=== PATIENT | female | born 1980 | race Caucasian/White ===

== ENCOUNTER → 2016-11-30 | Outpatient (CLI) | payer MEDICARE, MEDICAID ==
[2016-11-30 18:22] LABS: ALANINE AMINOTRANSFERASE 37 U/L (9-52); ALBUMIN 4.3 g/dL (3.5-5.0); ALKALINE PHOSPHATASE 119 U/L (38-126); ANION GAP 14 (5-19); ASPARTATE AMINO TRANSFERASE 30 U/L (14-36); BILIRUBIN,DIRECT 0.3 mg/dL (0.0-0.4); BILIRUBIN,TOTAL 0.4 mg/dL (0.2-1.3); BLOOD UREA NITROGEN 8 mg/dL (7-20); CARBON DIOXIDE 23 mmol/L (22-30); CHLORIDE 108 mmol/L (98-107); CREATININE RESULT 0.76 mg/dL (0.52-1.25); GLUCOSE 87 mg/dL (75-110); POTASSIUM 3.8 mmol/L (3.6-5.0); SODIUM 144.8 mmol/L (137-145); TOTAL PROTEIN 7.4 g/dL (6.3-8.2)
== END ==
LOC: OD 17:14
PROVIDERS: ATTEND Physician Assistant Medical
DX: R06.02 Shortness of breath (principal)
CPT/HCPCS: 36415; 80053

== ENCOUNTER 2016-12-10 07:23 | Day surgery (SDC) | payer MEDICARE, MEDICAID ==
[~2016-12-10 07:23] MED LIST: PROPOFOL INJ 200 MG/20 ML VIAL IV ONE
[2016-12-10] MEDS ORDERED: LIDOCAINE 0.5% INJ-PF (5 MG/ML) 50 ML SDV ONE (07:43)
[2016-12-10 09:00] VITALS: BP 123/83
--- NOTE | 2016-12-10 14:09 | Operative Report ---
Operative Report DATE OF SURGERY: 12/10/16 Operative Report: The risks, benefits and alternatives of the procedure including risks of bleeding, perforation requiring surgery are explained to the patient detail and informed consent is obtained. Patient is placed in a left, lateral decubital position. Timeout is called. Propofol medications administered. A rectal examination was done which did not reveal any masses, tears or fissures. An Olympus video scope was inserted into the patient's rectum. The scope was then gradually advanced all the way to the cecum. The cecum was identified by the usual anatomical landmarks including the ileocecal valve as well as the appendiceal office. Photodocumentation is obtained. Prep is good. The scope was then sequentially pulled back creative rest segments of the colon including the ascending colon, hepatic flexure, transverse colon, splenic flexure, descending colon, and finally into the rectosigmoid portions of the colon. Retroflexion maneuvers performed. PREOPERATIVE DIAGNOSIS: Rectal bleeding POSTOPERATIVE DIAGNOSIS: There is random areas of inflammation on the left side of the colon status post biopsy. Internal hemorrhoids OPERATION: Colonoscopy with biopsy SURGEON: GRISEL ARENAS ANESTHESIA: LMAC TISSUE REMOVED OR ALTERED: Colon mucosal specimens obtained COMPLICATIONS: None. ESTIMATED BLOOD LOSS: none. INTRAOPERATIVE FINDINGS: As described above. No masses, AVMs, diverticulosis noted. PROCEDURE: Patient tolerated the procedure well. No immediate postprocedure complications are noted. Patient is discharged in good condition. Discharge date 12/10/2016. Discharge diet: Regular. Discharge activity: Regular. 2-3 week follow-up to discuss findings. Patient is instructed call the office or proceed to the emergency room should there be any further problems or questions. We'll await on biopsies.
== END 2016-12-10 09:00 | disposition home or self-care (01) ==
LOC: END 07:23
PROVIDERS: ATTEND Internal Medicine Gastroenterology
PROC: 0DBG8ZX Excision of Left Large Intestine, Via Natural or Artificial Opening Endoscopic, Diagnostic (ICD-10-PCS; principal; 2016-12-10 08:00)
DX: K52.9 Noninfective gastroenteritis and colitis, unspecified (principal); K64.8 Other hemorrhoids; K62.5 Hemorrhage of anus and rectum; R73.9 Hyperglycemia, unspecified; R53.83 Other fatigue; M79.7 Fibromyalgia; I47.1 Supraventricular tachycardia; Z79.51 Long term (current) use of inhaled steroids; Z79.899 Other long term (current) drug therapy
CPT/HCPCS: 45380; 88305 ×2; J3490; J2704; 810

== ENCOUNTER 2016-12-22 16:33 | Emergency (ER) | payer MEDICARE, MEDICAID ==
[2016-12-22 16:38] VITALS: BP 125/78
--- NOTE | 2016-12-22 18:03 | ER Document Report ---
ED Medical Screen (RME) - General Chief Complaint: Abdominal Pain Stated Complaint: LOWER ABDOMINAL PAIN Mode of Arrival: Ambulatory Information source: Patient Notes: 36-year-old female presents with complaints of abdominal pain post colonoscopy. Patient notes abdomen is distended I have greeted and performed a rapid initial assessment of this patient. A comprehensive ED assessment and evaluation of the patient, analysis of test results and completion of the medical decision making process will be conducted by additional ED providers. PHYSICAL EXAMINATION: GENERAL: Well-appearing, well-nourished and in no acute distress. HEAD: Atraumatic, normocephalic. EYES: Pupils equal round and reactive to light, extraocular movements intact, conjunctiva are normal. ENT: Nares patent, oropharynx clear without exudates. Moist mucous membranes. NECK: Normal range of motion, supple without lymphadenopathy LUNGS: Breath sounds clear to auscultation bilaterally and equal. No wheezes rales or rhonchi. HEART: Regular rate and rhythm without murmurs ABDOMEN: Soft generalized abdominal pain Female : deferred Musculoskeletal: Normal range of motion, no pitting or edema. No cyanosis. NEUROLOGICAL: Cranial nerves grossly intact. Normal speech, normal gait. Normal sensory, motor exams PSYCH: Normal mood, normal affect. SKIN: Warm, Dry, normal turgor, no rashes or lesions noted. TRAVEL OUTSIDE OF THE [place] IN LAST 30 DAYS: No - Related Data Allergies/Adverse Reactions: aripiprazole [From Abilify] Allergy (Severe, Verified 12/22/16 17:52) Confusion Iodinated Contrast Media - Oral and [IV Dye, Iodine Containing] Allergy (Severe , Verified 12/22/16 17:52) Difficulty breathing tramadol [Tramadol] Allergy (Severe, Verified 12/22/16 17:52) Hives amitriptyline Allergy (Intermediate, Verified 12/22/16 17:52) swelling Past Medical History - Past Medical History Cardiac Medical History: Reports: Hx Hypertension - history of Denies: Hx Coronary Artery Disease, Hx Heart Attack Pulmonary Medical History: Reports: Hx Asthma, Hx Sleep Apnea Denies: Hx Bronchitis, Hx COPD, Hx Pneumonia Neurological Medical History: Denies: Hx Cerebrovascular Accident, Hx Seizures Renal/ Medical History: Denies: Hx Peritoneal Dialysis Musculoskeltal Medical History: Denies Hx Arthritis, Reports Hx Fibromyalgia, Reports Hx Muscular Dystrophy Psychiatric Medical History: Reports: Hx Anxiety, Hx Depression Past Surgical History: Reports: Hx Cholecystectomy, Hx Hysterectomy, Hx Tonsillectomy - Immunizations Immunizations up to date: Yes Hx Diphtheria, Pertussis, Tetanus Vaccination: Yes Physical Exam - Vital signs Vitals: Temp Pulse Resp BP Pulse Ox 98.5 F 95 19 125/78 97 12/22/16 16:37 12/22/16 16:37 12/22/16 16:37 12/22/16 16:37 12/22/16 16:37 Course - Vital Signs Vital signs: Temp Pulse Resp BP Pulse Ox 98.5 F 95 19 125/78 97 12/22/16 16:37 12/22/16 16:37 12/22/16 16:37 12/22/16 16:37 12/22/16 16:37
[2016-12-22 18:33] LABS: ABSOLUTE LYMPHOCYTES (AUTO) 3.2 10^3/uL (0.5-4.7); ABSOLUTE MONOCYTES (AUTO) 0.6 10^3/uL (0.1-1.4); ABSOLUTE NEUT (AUTO) 8.9 10^3/uL (1.7-8.2); BASOPHILS % (AUTO) 0.2 % (0-2); EOSINOPHILS % (AUTO) 0.3 % (0-6); HEMATOCRIT 40.5 % (36.0-47.0); HEMOGLOBIN 13.8 g/dL (12.0-15.5); HGB HCT DIFFERENCE 0.9; LYMPHOCYTES % (AUTO) 25.2 % (13-45); MEAN CORPUSCULAR HEMOGLOBIN 30.9 pg (27.0-33.4); MEAN CORPUSCULAR VOLUME 91 fl (80-97); RED BLOOD COUNT 4.46 10^6/uL (3.72-5.28); RED CELL DISTRIBUTION WIDTH 12.5 % (11.5-14.0); SEGMENTED NEUTROPHILS % (AUTO) 69.3 % (42-78); WHITE BLOOD COUNT 12.8 10^3/uL (4.0-10.5)
[2016-12-22] MEDS ORDERED: HYDROCODONE/ACETAMINOPHEN 5-325 MG TABLET PO ONE (18:58)
[2016-12-22 19:24] LABS: ALANINE AMINOTRANSFERASE 28 U/L (9-52); ALBUMIN 3.6 g/dL (3.5-5.0); ALKALINE PHOSPHATASE 79 U/L (38-126); ANION GAP 10 (5-19); ASPARTATE AMINO TRANSFERASE 17 U/L (14-36); BILIRUBIN,DIRECT 0.1 mg/dL (0.0-0.4); BILIRUBIN,TOTAL 0.2 mg/dL (0.2-1.3); BLOOD UREA NITROGEN 11 mg/dL (7-20); CALCIUM 8.6 mg/dL (8.4-10.2); CARBON DIOXIDE 22 mmol/L (22-30); CHLORIDE 110 mmol/L (98-107); CREATININE RESULT 0.76 mg/dL (0.52-1.25); GLUCOSE 81 mg/dL (75-110); LIPASE 71.9 U/L (23-300); POTASSIUM 3.4 mmol/L (3.6-5.0); TOTAL PROTEIN 6.1 g/dL (6.3-8.2)
--- NOTE | 2016-12-22 19:42 | ER Document Report ---
ED General - General Chief Complaint: Abdominal Pain Stated Complaint: LOWER ABDOMINAL PAIN Mode of Arrival: Ambulatory Information source: Patient Notes: 36 yr old female presents with complaints of abdominal pain for 12 day duration since having her colonoscopy. pt denies any fevers or chills, notes she has seen her pcp and her gastro and no abnormalities noted. Patient states her abdomen is distended TRAVEL OUTSIDE OF THE [place] IN LAST 30 DAYS: No - HPI Onset: Other Onset/Duration: Persistent Quality of pain: Achy Severity: Mild Pain Level: 1 Associated symptoms: Nausea, Other Exacerbated by: Denies Relieved by: Denies Similar symptoms previously: Yes Recently seen / treated by doctor: Yes - Related Data Allergies/Adverse Reactions: aripiprazole [From Abilify] Allergy (Severe, Verified 12/22/16 17:52) Confusion Iodinated Contrast Media - Oral and [IV Dye, Iodine Containing] Allergy (Severe , Verified 12/22/16 17:52) Difficulty breathing tramadol [Tramadol] Allergy (Severe, Verified 12/22/16 17:52) Hives amitriptyline Allergy (Intermediate, Verified 12/22/16 17:52) swelling Past Medical History - General Information source: Patient - Social History Smoking Status: Never Smoker Cigarette use (# per day): No Chew tobacco use (# tins/day): No Smoking Education Provided: No Family History: Reviewed & Not Pertinent Patient has suicidal ideation: No Patient has homicidal ideation: No - Past Medical History Cardiac Medical History: Reports: Hx Hypertension - history of Denies: Hx Coronary Artery Disease, Hx Heart Attack Pulmonary Medical History: Reports: Hx Asthma, Hx Sleep Apnea Denies: Hx Bronchitis, Hx COPD, Hx Pneumonia Neurological Medical History: Denies: Hx Cerebrovascular Accident, Hx Seizures Renal/ Medical History: Denies: Hx Peritoneal Dialysis Musculoskeltal Medical History: Denies Hx Arthritis, Reports Hx Fibromyalgia, Reports Hx Muscular Dystrophy Psychiatric Medical History: Reports: Hx Anxiety, Hx Depression Past Surgical History: Reports: Hx Cholecystectomy, Hx Hysterectomy, Hx Tonsillectomy - Immunizations Immunizations up to date: Yes Hx Diphtheria, Pertussis, Tetanus Vaccination: Yes Review of Systems - Review of Systems Notes: REVIEW OF SYSTEMS: CONSTITUTIONAL : Denies fever, chills, or sweats. Denies recent illness. EENT: Denies eye, ear, throat, or mouth pain or symptoms. Denies nasal or sinus congestion or discharge. Denies throat, tongue, or mouth swelling or difficulty swallowing. CARDIOVASCULAR: Denies chest pain. Denies palpitations or racing or irregular heart beat. Denies ankle edema. RESPIRATORY: Denies cough, cold, or chest congestion. Denies shortness of breath, difficulty breathing, or wheezing. GASTROINTESTINAL: Admits to nausea vomiting abdominal pain GENITOURINARY: Denies difficulty urinating, painful urination, burning, frequency, blood in urine, or discharge. FEMALE GENITOURINARY: Denies vaginal bleeding, heavy or abnormal periods, irregular periods. Denies vaginal discharge or odor. MUSCULOSKELETAL: Denies back or neck pain or stiffness. Denies joint pain or swelling. SKIN: Denies rash, lesions or sores. HEMATOLOGIC : Denies easy bruising or bleeding. LYMPHATIC: Denies swollen, enlarged glands. NEUROLOGICAL: Denies confusion or altered mental status. Denies passing out or loss of consciousness. Denies dizziness or lightheadedness. Denies headache. Denies weakness or paralysis or loss of use of either side. Denies problems with gait or speech. Denies sensory loss, numbness, or tingling. Denies seizures. PSYCHIATRIC: Denies anxiety or stress. Denies depression, suicidal ideation, or homicidal ideation. ALL OTHER SYSTEMS REVIEWED AND NEGATIVE. Dictation was performed using [employer] voice recognition software PHYSICAL EXAMINATION: GENERAL: Well-appearing, well-nourished and in no acute distress. HEAD: Atraumatic, normocephalic. EYES: Pupils equal round and reactive to light, extraocular movements intact, conjunctiva are normal. ENT: Nares patent, oropharynx clear without exudates. Moist mucous membranes. NECK: Normal range of motion, supple without lymphadenopathy LUNGS: Breath sounds clear to auscultation bilaterally and equal. No wheezes rales or rhonchi. HEART: Regular rate and rhythm without murmurs ABDOMEN: Soft, generalized tenderness no rebound or guarding Female : deferred Musculoskeletal: Normal range of motion, no pitting or edema. No cyanosis. NEUROLOGICAL: Cranial nerves grossly intact. Normal speech, normal gait. Normal sensory, motor exams PSYCH: Normal mood, normal affect. SKIN: Warm, Dry, normal turgor, no rashes or lesions noted. Physical Exam - Vital signs Vitals: Temp Pulse Resp BP Pulse Ox 98.5 F 95 19 125/78 97 12/22/16 16:37 12/22/16 16:37 12/22/16 16:37 12/22/16 16:37 12/22/16 16:37 Course - Re-evaluation Re-evalutation: 12/22/16 21:08 Lab work notes mild white count elevation however a CT was performed in no acute abnormality was noted. Patient was explained that no life-threatening issues are seen therefore I believe patient is stable for discharge to follow- up with her GI specialist which she states she will do so After performing a Medical Screening Examination, I estimate there is LOW risk for ACUTE APPENDICITIS, BOWEL OBSTRUCTION, ACUTE CHOLECYSTITIS, PERFORATED DIVERTICULITIS, INCARCERATED HERNIA, PANCREATITIS, PELVIC INFLAMMATORY DISEASE, PERFORATED ULCER, ECTOPIC , or TUBO-OVARIAN ABSCESS, thus I consider the discharge disposition reasonable. Also, there is no evidence or peritonitis , sepsis, or toxicity. I have reevaluated this patient multiple times and no significant life threatening changes are noted. The patient and I have discussed the diagnosis and risks, and we agree with discharging home with close follow-up with the understanding that symptoms and presentations can change. We also discussed returning to the Emergency Department immediately if new or worsening symptoms occur. We have discussed the symptoms which are most concerning (e.g., bloody stool, fever, changing or worsening pain, vomiting) that necessitate immediate return. - Vital Signs Vital signs: Temp Pulse Resp BP Pulse Ox 98.5 F 95 19 125/78 97 12/22/16 16:37 12/22/16 16:37 12/22/16 16:37 12/22/16 16:37 12/22/16 16:37 - Laboratory Result Diagrams: 12/22/16 18:20 12/22/16 18:50 Laboratory results interpreted by me: 12/22/16 12/22/16 18:20 18:50 WBC 12.8 H Absolute Neutrophils 8.9 H Potassium 3.4 L Chloride 110 H Total Protein 6.1 L - Diagnostic Test Radiology reviewed: Image reviewed, Reports reviewed Discharge - Discharge Clinical Impression: Nausea Abdominal pain Qualifiers: Abdominal location: generalized Qualified Code(s): R10.84 - Generalized abdominal pain Condition: Stable Disposition: HOME, SELF-CARE Instructions: Abdominal Pain ([facility]) Prescriptions: Oxycodone HCl/Acetaminophen [Percocet 5-325 mg Tablet] 1 - 2 tab PO Q4H PRN #15 tablet PRN Reason: Referrals: DOROTHEA MURDOCK PA-C [Primary Care Provider] - Follow up as needed GRISEL ARENAS MD [ACTIVE STAFF] - Follow up in 3-5 days
== END 2016-12-22 20:04 | disposition home or self-care (01) ==
LOC: ER 16:33
DX: R11.0 Nausea (principal); R10.84 Generalized abdominal pain; R10.30 Lower abdominal pain, unspecified
CPT/HCPCS: 99284; 36415; 83690; 85025; 80053; 74177; A9270

== ENCOUNTER 2017-03-29 15:56 | Emergency (ER) | payer MEDICAID, MEDICARE ==
--- NOTE | 2017-03-29 16:54 | ER Document Report ---
ED Medical Screen (RME) - General Chief Complaint: Palpitations Stated Complaint: CHEST PAIN Time Seen by Provider: 03/29/17 16:47 Mode of Arrival: Wheelchair Information source: Patient Notes: 36-year-old female reports a history of SVT that presents to the emergency room because of worsening SVT, and difficulty breathing. Patient states she feels like she is going to pass out stating she is having difficulty talking. Patient does have bilateral breath sounds and her oxygen saturation is pretty good. Her EKG shows sinus rhythm TRAVEL OUTSIDE OF THE [place] IN LAST 30 DAYS: No - Related Data Allergies/Adverse Reactions: aripiprazole [From Abilify] Allergy (Severe, Verified 12/22/16 17:52) Confusion Iodinated Contrast- Oral and IV Dye [IV Dye, Iodine Containing] Allergy (Severe , Verified 12/22/16 17:52) Difficulty breathing tramadol [Tramadol] Allergy (Severe, Verified 12/22/16 17:52) Hives amitriptyline Allergy (Intermediate, Verified 12/22/16 17:52) swelling Past Medical History - Social History Chew tobacco use (# tins/day): No Frequency of alcohol use: None Drug Abuse: None - Past Medical History Cardiac Medical History: Reports: Hx Hypertension - history of Denies: Hx Coronary Artery Disease, Hx Heart Attack Pulmonary Medical History: Reports: Hx Asthma, Hx Sleep Apnea Denies: Hx Bronchitis, Hx COPD, Hx Pneumonia Neurological Medical History: Denies: Hx Cerebrovascular Accident, Hx Seizures Renal/ Medical History: Denies: Hx Peritoneal Dialysis Musculoskeltal Medical History: Denies Hx Arthritis, Reports Hx Fibromyalgia, Reports Hx Muscular Dystrophy Psychiatric Medical History: Reports: Hx Anxiety, Hx Depression Past Surgical History: Reports: Hx Cholecystectomy, Hx Hysterectomy, Hx Tonsillectomy - Immunizations Immunizations up to date: Yes Hx Diphtheria, Pertussis, Tetanus Vaccination: Yes Physical Exam - Vital signs Vitals: Temp Pulse Resp BP Pulse Ox 98.2 F 97 20 117/86 H 98 03/29/17 16:09 03/29/17 16:09 03/29/17 16:09 03/29/17 16:09 03/29/17 16:09 Course - Vital Signs Vital signs: Temp Pulse Resp BP Pulse Ox 98.2 F 97 20 117/86 H 98 03/29/17 16:09 03/29/17 16:09 03/29/17 16:09 03/29/17 16:09 03/29/17 16:09
--- NOTE | 2017-03-29 17:23 | ER Document Report ---
ED Cardiac - General Chief Complaint: Palpitations Stated Complaint: CHEST PAIN Time Seen by Provider: 03/29/17 16:47 Mode of Arrival: Wheelchair Information source: Patient TRAVEL OUTSIDE OF THE [place] IN LAST 30 DAYS: No - HPI Patient complains to provider of: Chest tightness, Palpitations, Shortness of breath Quality of pain: Achy Severity now: Mild Severity at worst: Mild Pain level currently: 1 Chest pain precipitating factors: At Rest Associated symptoms: Shortness of breath Exacerbated by: Denies Relieved by: Nothing Similar symptoms previously: Yes Recently seen / treated by doctor: No Notes: Patient is a 36-year-old female who presents to the emergency room complaining of palpitations since yesterday with the sensation of a skipped beat, also feels as though her heart was racing at times, she reports a history of SVT with similar symptoms previously, she reports dizziness, feeling tired and short of breath at 2, she denies cough, cold or congestion, no fever or chills , no nausea vomiting or diarrhea - Related Data Allergies/Adverse Reactions: aripiprazole [From Abilify] Allergy (Severe, Verified 12/22/16 17:52) Confusion Iodinated Contrast- Oral and IV Dye [IV Dye, Iodine Containing] Allergy (Severe , Verified 12/22/16 17:52) Difficulty breathing tramadol [Tramadol] Allergy (Severe, Verified 12/22/16 17:52) Hives amitriptyline Allergy (Intermediate, Verified 12/22/16 17:52) swelling Past Medical History - General Information source: Patient - Social History Smoking Status: Current Every Day Smoker Chew tobacco use (# tins/day): No Frequency of alcohol use: None Drug Abuse: None Family History: Reviewed & Not Pertinent - Past Medical History Cardiac Medical History: Reports: Hx Hypertension - history of Denies: Hx Coronary Artery Disease, Hx Heart Attack Pulmonary Medical History: Reports: Hx Asthma, Hx Sleep Apnea Denies: Hx Bronchitis, Hx COPD, Hx Pneumonia Neurological Medical History: Denies: Hx Cerebrovascular Accident, Hx Seizures Renal/ Medical History: Denies: Hx Peritoneal Dialysis Musculoskeltal Medical History: Denies Hx Arthritis, Reports Hx Fibromyalgia, Reports Hx Muscular Dystrophy Psychiatric Medical History: Reports: Hx Anxiety, Hx Depression Past Surgical History: Reports: Hx Cholecystectomy, Hx Hysterectomy, Hx Tonsillectomy - Immunizations Immunizations up to date: Yes Hx Diphtheria, Pertussis, Tetanus Vaccination: Yes Review of Systems - Review of Systems Constitutional: No symptoms reported EENT: No symptoms reported Cardiovascular: See HPI Respiratory: See HPI Gastrointestinal: No symptoms reported Genitourinary: No symptoms reported Female Genitourinary: No symptoms reported Musculoskeletal: No symptoms reported Skin: No symptoms reported Hematologic/Lymphatic: No symptoms reported Neurological/Psychological: No symptoms reported -: Yes All other systems reviewed and negative Physical Exam - Vital signs Vitals: Temp Pulse Resp BP Pulse Ox 98.2 F 97 20 117/86 H 98 03/29/17 16:09 03/29/17 16:09 03/29/17 16:09 03/29/17 16:09 03/29/17 16:09 Interpretation: Normal - General General appearance: Appears well, Alert - HEENT Head: Normocephalic, Atraumatic Eyes: Normal Pupils: PERRL - Respiratory Respiratory status: No respiratory distress Chest status: Nontender Breath sounds: Normal Chest palpation: Normal - Cardiovascular Rhythm: Regular Heart sounds: Normal auscultation Murmur: No - Abdominal Inspection: Normal Distension: No distension Bowel sounds: Normal Tenderness: Nontender Organomegaly: No organomegaly - Back Back: Normal, Nontender - Extremities General upper extremity: Normal inspection, Nontender, Normal color, Normal ROM , Normal temperature General lower extremity: Normal inspection, Nontender, Normal color, Normal ROM , Normal temperature, Normal weight bearing. No: Juan Carlos's sign - Neurological Neuro grossly intact: Yes Cognition: Normal Orientation: AAOx4 Molly Coma Scale Eye Opening: Spontaneous Molly Coma Scale Verbal: Oriented [place] Coma Scale Motor: Obeys Commands [place] Coma Scale Total: 15 Speech: Normal Motor strength normal: LUE, RUE, LLE, RLE Sensory: Normal - Psychological Associated symptoms: Normal affect, Normal mood - Skin Skin Temperature: Warm Skin Moisture: Dry Skin Color: Normal Course - Re-evaluation Re-evalutation: 03/29/17 19:23 Lab and imaging findings were discussed with patient at bedside which are unremarkable, she has had no evidence of SVT while in the emergency room, I did note an occasional PVC on the monitor while in the room speaking with patient, she does report that she has not taken her medications in the past 2 weeks because she ran out and cannot afford to get prescriptions refilled at this point in time, I did advise patient it was important to get her prescriptions filled and take them as directed, follow-up with her primary care provider or return if symptoms worsen, patient acknowledges understanding and agreement with this plan 03/29/17 19:47 Nursing staff was able to obtain patient's medication list from Dr. Patel's office as well as from the pharmacy, I did review the medications with her, she confirms that all of these medication should be active medications but she ran out only 2 weeks ago, patient will be given a prescription for these medications and advised to follow-up with her primary care provider as well as her engineer of system development, or return if symptoms worsen, patient acknowledges understanding and agreement with this plan - Vital Signs Vital signs: Temp Pulse Resp BP Pulse Ox 98.2 F 97 14 114/75 97 03/29/17 16:09 03/29/17 16:09 03/29/17 19:01 03/29/17 19:01 03/29/17 19:01 - Laboratory Result Diagrams: 03/29/17 17:15 03/29/17 17:15 Laboratory results interpreted by me: 03/29/17 17:15 Potassium 3.3 L Carbon Dioxide 21 L Creatine Kinase 185 H - Diagnostic Test Radiology reviewed: Image reviewed, Reports reviewed - EKG Interpretation by Me EKG shows normal: Sinus rhythm Rate: Normal Rhythm: NSR When compared to previous EKG there are: No significant change Discharge - Discharge Clinical Impression: Palpitations, Chest wall pain Condition: Stable Disposition: HOME, SELF-CARE Instructions: Chest Wall Pain ([facility]), Palpitations (Irregular or Rapid Heartrate ) ([facility]) Additional Instructions: Follow up with your primary care provider and a engineer of system development in one to 2 days. Return to the emergency room immediately if symptoms worsen or any additional concerns. Prescriptions: Montelukast Sodium [Singulair 10 mg Tablet] 10 mg PO QHS #30 tablet Furosemide [Lasix 20 mg Tablet] 20 mg PO Q48HS #30 tablet Acetazolamide [Diamox 250 mg Tab] 250 mg PO TID #90 tab Cyclobenzaprine HCl [Flexeril 10 Mg Tablet] 10 mg PO TID #14 tablet Dexlansoprazole [Dexilant 30 mg Capsule] 30 mg PO DAILY #30 robert. Diltiazem HCl [Diltiazem ER] 180 mg PO DAILY #30 tab.er.24h Gabapentin [Neurontin] 600 mg PO TID #90 tablet Ibuprofen [Motrin 600 Mg Tablet] 600 mg PO TID #30 tablet Levetiracetam [Keppra 500 mg Tablet] 1,000 mg PO Q12 #120 tablet Lorazepam [Ativan 0.5 mg Tablet] 0.5 mg PO BID #30 tab Venlafaxine HCl [Effexor Xr] 150 mg PO BID #60 cap.sr.24h
--- NOTE | 2017-03-29 17:28 | RADIOLOGY REPORT (SQ) ---
EXAM DESCRIPTION: CHEST SINGLE VIEW COMPLETED DATE/TIME: 03/29/2017 5:15 pm REASON FOR STUDY: cp/sob COMPARISON: 07/30/2016 EXAM PARAMETERS: NUMBER OF VIEWS: One view. TECHNIQUE: Single frontal radiographic view of the chest acquired. RADIATION DOSE: NA LIMITATIONS: None. FINDINGS: LUNGS AND PLEURA: No opacities, masses or pneumothorax. No pleural effusion. MEDIASTINUM AND HILAR STRUCTURES: No masses. Contour normal. HEART AND VASCULAR STRUCTURES: Heart normal in size. Normal vasculature. BONES: No acute findings. HARDWARE: None in the chest. OTHER: No other significant finding. IMPRESSION: NO ACUTE RADIOGRAPHIC FINDING IN THE CHEST. TECHNICAL DOCUMENTATION: JOB ID: [id number]
[2017-03-29 17:47] LABS: ABSOLUTE EOSINOPHILS # (AUTO) 0.1 10^3/uL (0.0-0.6); ABSOLUTE LYMPHOCYTES (AUTO) 2.2 10^3/uL (0.5-4.7); ABSOLUTE MONOCYTES (AUTO) 0.3 10^3/uL (0.1-1.4); ABSOLUTE NEUT (AUTO) 3.8 10^3/uL (1.7-8.2); BASOPHILS % (AUTO) 0.4 % (0-2); EOSINOPHILS % (AUTO) 1.3 % (0-6); HEMATOCRIT 41.7 % (36.0-47.0); HEMOGLOBIN 14.6 g/dL (12.0-15.5); HGB HCT DIFFERENCE 2.1; LYMPHOCYTES % (AUTO) 34.5 % (13-45); MEAN CORPUSCULAR HEMOGLOBIN 32.4 pg (27.0-33.4); MEAN CORPUSCULAR HGB CONC 34.9 g/dL (32.0-36.0); MEAN CORPUSCULAR VOLUME 93 fl (80-97); MONOCYTES % (AUTO) 5.1 % (3-13); RED CELL DISTRIBUTION WIDTH 12.5 % (11.5-14.0); SEGMENTED NEUTROPHILS % (AUTO) 58.7 % (42-78); WHITE BLOOD COUNT 6.4 10^3/uL (4.0-10.5)
[2017-03-29 17:54] LABS: PROTHROMBIN TIME 12.9 SEC (11.4-15.4)
[2017-03-29 18:02] LABS: ALANINE AMINOTRANSFERASE 32 U/L (9-52); ALBUMIN 4.8 g/dL (3.5-5.0); ALKALINE PHOSPHATASE 100 U/L (38-126); ANION GAP 13 (5-19); ASPARTATE AMINO TRANSFERASE 29 U/L (14-36); BILIRUBIN,DIRECT 0.3 mg/dL (0.0-0.4); BILIRUBIN,TOTAL 0.5 mg/dL (0.2-1.3); BLOOD UREA NITROGEN 11 mg/dL (7-20); CALCIUM 9.5 mg/dL (8.4-10.2); CARBON DIOXIDE 21 mmol/L (22-30); CHLORIDE 107 mmol/L (98-107); CREATINE KINASE 185 U/L (30-135); CREATININE RESULT 0.92 mg/dL (0.52-1.25); GLUCOSE 85 mg/dL (75-110); POTASSIUM 3.3 mmol/L (3.6-5.0); SODIUM 140.7 mmol/L (137-145); TOTAL PROTEIN 7.9 g/dL (6.3-8.2)
[2017-03-29 18:15] LABS: TROPONIN I < 0.012 ng/mL
[2017-03-29] MEDS ORDERED: ASPIRIN 81 MG TABLET, CHEWABLE PO ONE (18:26)
[2017-03-29] MEDS ORDERED: MORPHINE SULFATE 10 MG/ML INJ IV ONE (18:36)
[2017-03-29 19:03] VITALS: BP 114/75
--- NOTE | 2017-03-29 19:05 | EKG REPORT ---
SEVERITY:- BORDERLINE ECG - SINUS RHYTHM BORDERLINE T ABNORMALITIES, ANT-LAT LEADS BORDERLINE PROLONGED QT INTERVAL : Confirmed by: Cooper Pacheco MD 29-Mar-2017 19:05:03
== END 2017-03-29 20:15 | disposition home or self-care (01) ==
LOC: ER 15:56
DX: I49.3 Ventricular premature depolarization (principal); I47.1 Supraventricular tachycardia; T46.1X6A Underdosing of calcium-channel blockers, initial encounter; Z91.120 Patient's intentional underdosing of medication regimen due to financial hardship; R07.89 Other chest pain; R06.02 Shortness of breath; R42 Dizziness and giddiness; R53.83 Other fatigue; J45.909 Unspecified asthma, uncomplicated; I10 Essential (primary) hypertension; F17.200 Nicotine dependence, unspecified, uncomplicated; Z86.79 Personal history of other diseases of the circulatory system; Z88.8 Allergy status to other drugs, medicaments and biological substances; Z91.041 Radiographic dye allergy status; Z88.5 Allergy status to narcotic agent
CPT/HCPCS: 93005; 99285; 96374; 36415; 82553; 82550; 84443; 85025; 85610; 80053; 84484; 71010; 93010; J2270

== ENCOUNTER 2017-04-08 17:11 | Emergency (ER) | payer MEDICARE, MEDICAID ==
--- NOTE | 2017-04-08 17:47 | RADIOLOGY REPORT (SQ) ---
EXAM DESCRIPTION: CHEST SINGLE VIEW COMPLETED DATE/TIME: 04/08/2017 5:34 pm REASON FOR STUDY: chest pain radiating to left arm COMPARISON: 03/29/2017 EXAM PARAMETERS: NUMBER OF VIEWS: One view. TECHNIQUE: Single frontal radiographic view of the chest acquired. RADIATION DOSE: NA LIMITATIONS: None. FINDINGS: LUNGS AND PLEURA: No opacities, masses or pneumothorax. No pleural effusion. MEDIASTINUM AND HILAR STRUCTURES: No masses. Contour normal. HEART AND VASCULAR STRUCTURES: Heart normal in size. Normal vasculature. BONES: No acute findings. HARDWARE: None in the chest. OTHER: No other significant finding. IMPRESSION: NO ACUTE RADIOGRAPHIC FINDING IN THE CHEST. TECHNICAL DOCUMENTATION: JOB ID: [id number]
[2017-04-08 18:21] LABS: ABSOLUTE BASOPHILS # (AUTO) 0.1 10^3/uL (0.0-0.2); ABSOLUTE EOSINOPHILS # (AUTO) 0.2 10^3/uL (0.0-0.6); ABSOLUTE LYMPHOCYTES (AUTO) 2.4 10^3/uL (0.5-4.7); ABSOLUTE MONOCYTES (AUTO) 0.4 10^3/uL (0.1-1.4); ABSOLUTE NEUT (AUTO) 3.8 10^3/uL (1.7-8.2); BASOPHILS % (AUTO) 0.8 % (0-2); EOSINOPHILS % (AUTO) 2.6 % (0-6); HEMATOCRIT 38.7 % (36.0-47.0); HEMOGLOBIN 13.4 g/dL (12.0-15.5); HGB HCT DIFFERENCE 1.5; LYMPHOCYTES % (AUTO) 35.8 % (13-45); MEAN CORPUSCULAR HEMOGLOBIN 32.4 pg (27.0-33.4); MEAN CORPUSCULAR HGB CONC 34.6 g/dL (32.0-36.0); MEAN CORPUSCULAR VOLUME 94 fl (80-97); MONOCYTES % (AUTO) 5.9 % (3-13); RED BLOOD COUNT 4.12 10^6/uL (3.72-5.28); RED CELL DISTRIBUTION WIDTH 12.8 % (11.5-14.0); SEGMENTED NEUTROPHILS % (AUTO) 54.9 % (42-78); WHITE BLOOD COUNT 6.8 10^3/uL (4.0-10.5)
[2017-04-08 18:44] LABS: ALANINE AMINOTRANSFERASE 36 U/L (9-52); ALBUMIN 3.9 g/dL (3.5-5.0); ALKALINE PHOSPHATASE 91 U/L (38-126); ANION GAP 10 (5-19); ASPARTATE AMINO TRANSFERASE 25 U/L (14-36); BILIRUBIN,DIRECT 0.3 mg/dL (0.0-0.4); BILIRUBIN,TOTAL 0.4 mg/dL (0.2-1.3); BLOOD UREA NITROGEN 10 mg/dL (7-20); CALCIUM 8.5 mg/dL (8.4-10.2); CARBON DIOXIDE 19 mmol/L (22-30); CHLORIDE 114 mmol/L (98-107); CREATINE KINASE 214 U/L (30-135); CREATININE RESULT 0.82 mg/dL (0.52-1.25); GLUCOSE 88 mg/dL (75-110); TOTAL PROTEIN 6.7 g/dL (6.3-8.2)
--- NOTE | 2017-04-08 18:49 | ER Document Report ---
ED Cardiac - General Chief Complaint: Chest Pain Stated Complaint: CHEST PAIN Time Seen by Provider: 04/08/17 17:48 Mode of Arrival: Medic Information source: Patient, Emergency Med Personnel TRAVEL OUTSIDE OF THE [place] IN LAST 30 DAYS: No - HPI Patient complains to provider of: Chest pain Use of: denies: Alcohol, Amphetamines, Bath salts, Caffeine, Cocaine, Decongestants Was the onset of pain: Sudden When did pain begin: 1500 HRS Is the pain a: New problem Chest pain location: Under breast - LEFT Quality of pain: Constant, Pressure, Sharp Chest pain radiation location: None Severity now: Mild Severity at worst: Moderate Chest pain precipitating factors: Physical Exertion - WALKING [place] Cardiac risk factors: Smoker. denies: Hx [place] Positive cardiac history: No Associated symptoms: Nausea/vomiting, Shortness of breath Exacerbated by: Denies Relieved by: Nothing. denies: NTG Similar symptoms previously: Yes Recently seen / treated by doctor: No - Related Data Allergies/Adverse Reactions: aripiprazole [From Abilify] Allergy (Severe, Verified 04/08/17 17:32) Confusion Iodinated Contrast- Oral and IV Dye [IV Dye, Iodine Containing] Allergy (Severe , Verified 04/08/17 17:32) Difficulty breathing tramadol [Tramadol] Allergy (Severe, Verified 04/08/17 17:32) Hives amitriptyline Allergy (Intermediate, Verified 04/08/17 17:32) swelling Home Medications: Current Home Medications Levetiracetam [Keppra 500 mg Tablet] 250 mg PO Q12 04/08/17 [History] Venlafaxine HCl [Effexor Xr] 250 mg PO BID 04/08/17 [History] Venlafaxine HCl [Effexor] 100 mg PO BID 04/08/17 [History] Past Medical History - General Information source: Patient - Social History Smoking Status: Current Every Day Smoker Chew tobacco use (# tins/day): No Frequency of alcohol use: None Drug Abuse: None Family History: Reviewed & Not Pertinent - Past Medical History Cardiac Medical History: Reports: Hx Hypertension - history of Denies: Hx Coronary Artery Disease, Hx Heart Attack Pulmonary Medical History: Reports: Hx Asthma, Hx Sleep Apnea Denies: Hx Bronchitis, Hx COPD, Hx Pneumonia Neurological Medical History: Denies: Hx Cerebrovascular Accident, Hx Seizures Renal/ Medical History: Denies: Hx Peritoneal Dialysis Musculoskeltal Medical History: Denies Hx Arthritis, Reports Hx Fibromyalgia, Reports Hx Muscular Dystrophy Psychiatric Medical History: Reports: Hx Anxiety, Hx Depression Past Surgical History: Reports: Hx Cholecystectomy, Hx Hysterectomy, Hx Tonsillectomy - Immunizations Immunizations up to date: Yes Hx Diphtheria, Pertussis, Tetanus Vaccination: Yes Review of Systems - Review of Systems Constitutional: See HPI EENT: No symptoms reported Cardiovascular: See HPI Respiratory: See HPI Gastrointestinal: See HPI Genitourinary: No symptoms reported Female Genitourinary: denies: Musculoskeletal: No symptoms reported Skin: Other - SE PHYS. EXAM Physical Exam - Vital signs Vitals: Resp 18 04/08/17 17:15 Interpretation: Hypotensive. No: Tachycardic, Tachypneic, Febrile - General General appearance: Appears well, Alert In distress: None - HEENT Head: Normocephalic Eyes: Normal Conjunctiva: Normal Ears: Normal Nasal: Normal Mouth/Lips: Normal Mucous membranes: Normal Pharynx: Normal Neck: Normal - Respiratory Respiratory status: No respiratory distress Breath sounds: Normal - Cardiovascular Rhythm: Regular Heart sounds: Normal auscultation Murmur: No - Abdominal Inspection: Normal, Obese - Back Back: Normal - Extremities General upper extremity: Normal inspection General lower extremity: Normal inspection - Neurological Neuro grossly intact: Yes Cognition: Normal Orientation: AAOx4 - Psychological Associated symptoms: Normal affect, Normal mood - Skin Skin Temperature: Warm Skin Moisture: Dry Skin Color: Normal, Erythema - MODERATE SOLAR DERMATITIS ON EXPOSED AREAS Skin Turgor: Elastic Course - Vital Signs Vital signs: Temp Pulse Resp BP Pulse Ox 97.6 F 14 90/60 L 99 04/08/17 22:00 04/08/17 22:24 04/08/17 22:24 04/08/17 22:24 - Laboratory Result Diagrams: 04/08/17 18:10 04/08/17 18:10 Laboratory results interpreted by me: 04/08/17 04/08/17 18:10 18:45 Potassium 3.1 L Chloride 114 H Carbon Dioxide 19 L Creatine Kinase 214 H Ur Leukocyte Esterase TRACE H - EKG Interpretation by Ri EKG shows normal: Sinus rhythm, Dickson, Intervals, QRS Complexes. abnormal: ST-T Waves - BORDERLINE ANT. T ABNLS Rate: Normal Rhythm: NSR Discharge - Discharge Clinical Impression: Chest pain with minimal risk for cardiac etiology, Fibromyalgia, Hypokalemia Condition: Stable Disposition: HOME, SELF-CARE Instructions: Chest Pain of Unclear Cause ([facility]) Additional Instructions: REST, DRINK PLENTY OF FLUIDS. CONTINUE USUAL MEDS. YOU MAY TAKE IBUPROFEN OR NAPROXEN FOR PAIN IF NEEDED. FOLLOW UP WITH YOUR PRIMARY CARE PROVIDER, CALL TOMORROW FOR APPOINTMENT.
[2017-04-08 18:55] LABS: CREATINE KINASE MB 2.09 ng/mL (<4.55)
[2017-04-08 18:56] LABS: TROPONIN I < 0.012 ng/mL
[2017-04-08 19:06] LABS: APPEARANCE,URINE CLEAR; BILIRUBIN,URINE NEGATIVE (NEGATIVE); GLUCOSE, URINE NEGATIVE (NEGATIVE); KETONES,URINE NEGATIVE (NEGATIVE); LEUKOCYTE ESTERASE,URINE TRACE (NEGATIVE); NITRITE,URINE NEGATIVE (NEGATIVE); PROTEIN,URINE NEGATIVE (NEGATIVE); URINE SPECIFIC GRAVITY 1.006; UROBILINOGEN,URINE NEGATIVE mg/dL (<2.0)
[2017-04-08 19:16] LABS: URINE BARBITURATES SCREEN NEGATIVE; URINE METHADONE SCREEN NEGATIVE; URINE OPIATES LOW NEGATIVE; URINE PHENCYCLIDINE SCREEN NEGATIVE
[2017-04-08 19:17] LABS: POTASSIUM 3.1 mmol/L (3.6-5.0)
--- NOTE | 2017-04-08 19:21 | EKG REPORT ---
SEVERITY:- BORDERLINE ECG - SINUS RHYTHM BORDERLINE T ABNORMALITIES, ANTERIOR LEADS : Confirmed by: Cooper Pacheco MD 08-Apr-2017 19:19:51
[2017-04-08] MEDS ORDERED: ACETAMINOPHEN 325 MG TABLET PO ONE (19:46)
[2017-04-08] MEDS ORDERED: POTASSIUM CHLORIDE 10 MEQ TABLET.SA PO ONE (20:16)
[2017-04-08] MEDS ORDERED: NORMAL SALINE 1000 ML 500 ML IV ONE (20:33)
[2017-04-08] MEDS ORDERED: NITROFURANTOIN MONOHYD/M-CRYST 100 MG CAPSULE PO ONE (20:34)
[2017-04-08] MEDS ORDERED: KETOROLAC TROMETHAMINE INJ/PF 30 MG/1 ML SDV IV ONE (22:31)
[2017-04-08 22:43] VITALS: BP 94/57
== END 2017-04-08 22:50 | disposition home or self-care (01) ==
LOC: ER 17:11
DX: R07.9 Chest pain, unspecified (principal); M79.7 Fibromyalgia; E87.6 Hypokalemia; Z79.899 Other long term (current) drug therapy; F17.200 Nicotine dependence, unspecified, uncomplicated
CPT/HCPCS: 93005; 99285; 96374; 36415; 82553; 82550; 85025; 80053; 81001; 84484; 80307; 85379; 71010; 93010; A9270 ×3; J1885; J7030; J8499

== ENCOUNTER 2017-04-28 13:49 | Emergency (ER) | payer MEDICAID, MEDICARE ==
[2017-04-28] MEDS ORDERED: LIDOCAINE 1% INJ-PF (10 MG/ML) 30 ML SDV INJ ONE (14:10)
--- NOTE | 2017-04-28 14:13 | ER Document Report ---
ED General - General Chief Complaint: Abscess Stated Complaint: ABSCESS Time Seen by Provider: 04/28/17 14:10 Mode of Arrival: Ambulatory Information source: Patient Notes: 36 yr old female presents with complaints of left lower abd wall abscess of a few day duration with redness. pt denies any fevers or chills, denies any nausea o vomiting , 2 previous abscesses TRAVEL OUTSIDE OF THE [place] IN LAST 30 DAYS: No - HPI Onset: Other Onset/Duration: Persistent Quality of pain: Achy Severity: Mild Pain Level: 1 Associated symptoms: None Exacerbated by: Denies Relieved by: Denies Similar symptoms previously: Yes Recently seen / treated by doctor: Yes - Related Data Allergies/Adverse Reactions: aripiprazole [From Abilify] Allergy (Severe, Verified 04/08/17 17:32) Confusion Iodinated Contrast- Oral and IV Dye [IV Dye, Iodine Containing] Allergy (Severe , Verified 04/08/17 17:32) Difficulty breathing tramadol [Tramadol] Allergy (Severe, Verified 04/08/17 17:32) Hives amitriptyline Allergy (Intermediate, Verified 04/08/17 17:32) swelling Past Medical History - Social History Smoking Status: Current Every Day Smoker Cigarette use (# per day): Yes Chew tobacco use (# tins/day): No Smoking Education Provided: No Frequency of alcohol use: None Drug Abuse: None Family History: Reviewed & Not Pertinent - Past Medical History Cardiac Medical History: Reports: Hx Hypertension - history of Denies: Hx Coronary Artery Disease, Hx Heart Attack Pulmonary Medical History: Reports: Hx Asthma, Hx Sleep Apnea Denies: Hx Bronchitis, Hx COPD, Hx Pneumonia Neurological Medical History: Reports: Hx Seizures. Denies: Hx Cerebrovascular Accident Renal/ Medical History: Denies: Hx Peritoneal Dialysis Musculoskeltal Medical History: Denies Hx Arthritis, Reports Hx Fibromyalgia, Reports Hx Muscular Dystrophy Psychiatric Medical History: Reports: Hx Anxiety, Hx Depression Past Surgical History: Reports: Hx Cholecystectomy, Hx Hysterectomy, Hx Tonsillectomy - Immunizations Immunizations up to date: Yes Hx Diphtheria, Pertussis, Tetanus Vaccination: Yes Review of Systems - Review of Systems Notes: REVIEW OF SYSTEMS: CONSTITUTIONAL : Denies fever, chills, or sweats. Denies recent illness. EENT: Denies eye, ear, throat, or mouth pain or symptoms. Denies nasal or sinus congestion or discharge. Denies throat, tongue, or mouth swelling or difficulty swallowing. CARDIOVASCULAR: Denies chest pain. Denies palpitations or racing or irregular heart beat. Denies ankle edema. RESPIRATORY: Denies cough, cold, or chest congestion. Denies shortness of breath, difficulty breathing, or wheezing. GASTROINTESTINAL: Denies abdominal pain or distention. Denies nausea, vomiting , or diarrhea. Denies blood in vomitus, stools, or per rectum. Denies black, tarry stools. Denies constipation. GENITOURINARY: Denies difficulty urinating, painful urination, burning, frequency, blood in urine, or discharge. FEMALE GENITOURINARY: Denies vaginal bleeding, heavy or abnormal periods, irregular periods. Denies vaginal discharge or odor. MUSCULOSKELETAL: Denies back or neck pain or stiffness. Denies joint pain or swelling. SKIN: left abd wall abscess HEMATOLOGIC : Denies easy bruising or bleeding. LYMPHATIC: Denies swollen, enlarged glands. NEUROLOGICAL: Denies confusion or altered mental status. Denies passing out or loss of consciousness. Denies dizziness or lightheadedness. Denies headache. Denies weakness or paralysis or loss of use of either side. Denies problems with gait or speech. Denies sensory loss, numbness, or tingling. Denies seizures. PSYCHIATRIC: Denies anxiety or stress. Denies depression, suicidal ideation, or homicidal ideation. ALL OTHER SYSTEMS REVIEWED AND NEGATIVE. PHYSICAL EXAMINATION: GENERAL: Well-appearing, well-nourished and in no acute distress. HEAD: Atraumatic, normocephalic. EYES: Pupils equal round and reactive to light, extraocular movements intact, conjunctiva are normal. ENT: Nares patent, oropharynx clear without exudates. Moist mucous membranes. NECK: Normal range of motion, supple without lymphadenopathy LUNGS: Breath sounds clear to auscultation bilaterally and equal. No wheezes rales or rhonchi. HEART: Regular rate and rhythm without murmurs ABDOMEN: Soft, nontender, nondistended abdomen. No guarding, no rebound. No masses appreciated. Female : deferred Musculoskeletal: Normal range of motion, no pitting or edema. No cyanosis. NEUROLOGICAL: Cranial nerves grossly intact. Normal speech, normal gait. Normal sensory, motor exams PSYCH: Normal mood, normal affect. SKIN: superifical abscess 1x1 cm wtih area of erythema 5x5 cm Dictation was performed using [employer] voice recognition software Physical Exam - Vital signs Vitals: Temp Pulse Resp BP Pulse Ox 97.8 F 91 16 119/77 98 04/28/17 13:52 04/28/17 13:52 04/28/17 13:52 04/28/17 13:52 04/28/17 13:52 Course - Re-evaluation Re-evalutation: 04/28/17 14:52 Area was incised and drained small amount of pus was removed, patient will be placed on antibiotics otherwise well-appearing no distress After performing a Medical Screening Examination, I estimate there is LOW risk for OPEN FRACTURE, COMPARTMENT SYNDROME, TENDON RUPTURE, ACUTE NEUROVASCULAR INJURY, or RETAINED FOREIGN BODY, thus I consider the discharge disposition reasonable. Also, there is no evidence or peritonitis, sepsis, or toxicity. I have reevaluated this patient multiple times and no significant life threatening changes are noted. The patient and I have discussed the diagnosis and risks, and we agree with discharging home with close follow-up with the understanding that symptoms and presentations can change. We also discussed returning to the Emergency Department immediately if new or worsening symptoms occur. We have discussed the symptoms which are most concerning (e.g., changing or worsening pain, fever, numbness, weakness, cool or painful digits) that necessitate immediate return. - Vital Signs Vital signs: Temp Pulse Resp BP Pulse Ox 97.8 F 91 16 119/77 98 04/28/17 13:52 04/28/17 13:52 04/28/17 13:52 04/28/17 13:52 04/28/17 13:52 Procedures - Incision and Drainage Left Abdomen Time completed: 14:40 Type: Simple Anesthetic type: 1% Lidocaine mL's of anesthetic: 5 Blade size: 11 I&D procedure: Chlorprep applied, Shurclens applied, Sterile dressing applied Incision Method: Incision made by scalpel Amount/type of drainage: Small amount of pus Discharge - Discharge Clinical Impression: Abscess, abdomen Condition: Stable Disposition: HOME, SELF-CARE Instructions: Abscess ([facility]), Post Incision and Drainage Additional Instructions: Follow up with your physician tomorrow for further care or return to the ED IMMEDIATELY if symptoms worsen or new concerns occur. If you cannot afford to follow up with your primary care physician a list of low cost clinics have been provided at the end of your discharge papers as well. Prescriptions: Cephalexin Monohydrate [Keflex 500 mg Capsule] 500 mg PO Q6H 10 Days capsule Sulfamethoxazole/Trimethoprim [Bactrim Ds Tablet] 2 each PO BID #40 tablet
[2017-04-28 15:28] VITALS: BP 112/79
== END 2017-04-28 15:28 | disposition home or self-care (01) ==
LOC: ER 13:49
PROC: 0H97XZZ Drainage of Abdomen Skin, External Approach (ICD-10-PCS; principal; 2017-04-28)
DX: L02.211 Cutaneous abscess of abdominal wall (principal); I10 Essential (primary) hypertension; J45.909 Unspecified asthma, uncomplicated; F17.210 Nicotine dependence, cigarettes, uncomplicated; Z88.5 Allergy status to narcotic agent; Z88.8 Allergy status to other drugs, medicaments and biological substances; Z91.041 Radiographic dye allergy status
CPT/HCPCS: 10060; 99283; J3490

== ENCOUNTER 2018-05-11 20:56 | Emergency (ER) | payer MEDICAID, MEDICARE ==
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
[2018-05-11 22:07] VITALS: BP 125/88
[2018-05-11 23:00] LABS: ABSOLUTE BASOPHILS # (AUTO) 0.1 10^3/uL (0.0-0.2); ABSOLUTE EOSINOPHILS # (AUTO) 0.1 10^3/uL (0.0-0.6); ABSOLUTE LYMPHOCYTES (AUTO) 2.8 10^3/uL (0.5-4.7); ABSOLUTE MONOCYTES (AUTO) 0.5 10^3/uL (0.1-1.4); ABSOLUTE NEUT (AUTO) 4.1 10^3/uL (1.7-8.2); BASOPHILS % (AUTO) 0.8 % (0-2); EOSINOPHILS % (AUTO) 1.7 % (0-6); HEMATOCRIT 40.1 % (36.0-47.0); HEMOGLOBIN 14.2 g/dL (12.0-15.5); LYMPHOCYTES % (AUTO) 37.2 % (13-45); MEAN CORPUSCULAR HEMOGLOBIN 32.3 pg (27.0-33.4); MEAN CORPUSCULAR HGB CONC 35.3 g/dL (32.0-36.0); MEAN CORPUSCULAR VOLUME 91 fl (80-97); MONOCYTES % (AUTO) 6.6 % (3-13); PLATELET COUNT 232 10^3/uL (150-450); RED BLOOD COUNT 4.39 10^6/uL (3.72-5.28); RED CELL DISTRIBUTION WIDTH 12.2 % (11.5-14.0); SEGMENTED NEUTROPHILS % (AUTO) 53.7 % (42-78); TOTAL CELLS COUNTED % (AUTO) 100 %; WHITE BLOOD COUNT 7.6 10^3/uL (4.0-10.5)
[2018-05-11 23:22] LABS: ALANINE AMINOTRANSFERASE 29 U/L (9-52); ALBUMIN 4.3 g/dL (3.5-5.0); ALKALINE PHOSPHATASE 80 U/L (38-126); ANION GAP 8 (5-19); ASPARTATE AMINO TRANSFERASE 27 U/L (14-36); BILIRUBIN,DIRECT 0.4 mg/dL (0.0-0.4); BILIRUBIN,TOTAL 0.4 mg/dL (0.2-1.3); BLOOD UREA NITROGEN 8 mg/dL (7-20); CALCIUM 9.4 mg/dL (8.4-10.2); CARBON DIOXIDE 29 mmol/L (22-30); CHLORIDE 103 mmol/L (98-107); GLUCOSE 92 mg/dL (75-110); POTASSIUM 3.6 mmol/L (3.6-5.0); SODIUM 140.1 mmol/L (137-145); TOTAL PROTEIN 7.2 g/dL (6.3-8.2)
[2018-05-12 03:10] LABS: APPEARANCE,URINE CLOUDY; BILIRUBIN,URINE MODERATE (NEGATIVE); COLOR,URINE AMBER; GLUCOSE, URINE NEGATIVE (NEGATIVE); KETONES,URINE NEGATIVE (NEGATIVE); PROTEIN,URINE 30 mg/dL (NEGATIVE); URINE SPECIFIC GRAVITY 1.029; UROBILINOGEN,URINE NEGATIVE mg/dL (<2.0)
[2018-05-12 03:11] LABS: LEUKOCYTE ESTERASE,URINE NEGATIVE (NEGATIVE); NITRITE,URINE NEGATIVE (NEGATIVE)
--- NOTE | 2018-05-13 15:30 | EKG REPORT ---
SEVERITY:- BORDERLINE ECG - SINUS RHYTHM BORDERLINE T ABNORMALITIES, ANT-LAT LEADS : Confirmed by: Louise Hughes MD 13-May-2018 15:29:48
== END 2018-05-12 01:48 | disposition left against medical advice (07) ==
LOC: ER 20:56
DX: R51 Headache (principal); R07.9 Chest pain, unspecified; R42 Dizziness and giddiness; Z88.8 Allergy status to other drugs, medicaments and biological substances; Z91.041 Radiographic dye allergy status; I10 Essential (primary) hypertension; G47.30 Sleep apnea, unspecified; R56.9 Unspecified convulsions; F41.9 Anxiety disorder, unspecified; F32.9 Major depressive disorder, single episode, unspecified; Z90.49 Acquired absence of other specified parts of digestive tract; Z90.710 Acquired absence of both cervix and uterus
CPT/HCPCS: 36415; 80053; 81001; 84703; 85025; 93005; 93010; 99281

== ENCOUNTER → 2018-11-10 | Outpatient (CLI) | payer OTHER | LOC: LAB 16:47 | PROVIDERS: ATTEND Nurse Practitioner Acute Care | DX: R30.0 Dysuria (principal) | CPT/HCPCS: 87086 ==

== ENCOUNTER 2019-01-27 18:44 | Emergency (ER) | payer OTHER ==
[2019-01-27 19:09] VITALS: BP 132/90
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
== END 2019-01-27 20:17 | disposition home or self-care (01) ==
LOC: ER 18:44
DX: M25.511 Pain in right shoulder (principal); F17.210 Nicotine dependence, cigarettes, uncomplicated; W50.0XXA Accidental hit or strike by another person, initial encounter; Y99.0 Civilian activity done for income or pay; Z90.49 Acquired absence of other specified parts of digestive tract; Z90.710 Acquired absence of both cervix and uterus
CPT/HCPCS: 99283

== ENCOUNTER 2019-08-30 18:46 | Emergency (ER) | payer OTHER ==
[2019-08-30] MEDS ORDERED: DIPH/PERTUSS(ACELL)/TETANUS VAC/PF 0.5 ML SYR (>=10YO) IM ONE (19:50)
[2019-08-30] MEDS ORDERED: NORMAL SALINE 1000 ML 1,000 ML IV ONE (19:51)
--- NOTE | 2019-08-30 19:51 | ER Document Report ---
ED Medical Screen (RME) - General Chief Complaint: Dog Bite Stated Complaint: DOG BITE Time Seen by Provider: 08/30/19 19:43 Primary Care Provider: ADRIENNE CABALLERO MD [Primary Care Provider] - Follow up as needed Notes: Patient is a 39-year-old female who presents to the emergency department from urgent care for a dog bite. Her dog was being intact and another dog that she does not know ended up coming up to their dog and started to try to break up the fight, ended up getting bit on the right third finger at the dorsal proximal portion of her finger. At the urgent care she ended up spiking a fever. She d oes not know when her last tetanus vaccine is. She also has a headache. Exam: Patient able to flex fingers with no difficulty. Horizontal laceration noted to right third finger at the proximal, dorsal area of her finger. Little less than 1 cm in length I have greeted and performed a rapid initial assessment of this patient. A comprehensive ED assessment and evaluation of the patient, analysis of test results and completion of medical decision making process will be conducted by an additional ED providers. TRAVEL OUTSIDE OF THE [place] IN LAST 30 DAYS: No - Related Data Allergies/Adverse Reactions: aripiprazole [From Abilify] Allergy (Severe, Verified 05/11/18 21:03) Confusion Iodinated Contrast Media [IV Dye, Iodine Containing] Allergy (Severe, Verified 05/11/18 21:03) Difficulty breathing tramadol [Tramadol] Allergy (Severe, Verified 05/11/18 21:03) Hives amitriptyline Allergy (Intermediate, Verified 05/11/18 21:03) swelling Past Medical History - Social History Frequency of alcohol use: None Drug Abuse: None - Past Medical History Cardiac Medical History: Reports: Hx Hypertension - history of Denies: Hx Coronary Artery Disease, Hx Heart Attack Pulmonary Medical History: Reports: Hx Asthma, Hx Sleep Apnea Denies: Hx Bronchitis, Hx COPD, Hx Pneumonia Neurological Medical History: Reports: Hx Seizures. Denies: Hx Cerebrovascular Accident Renal/ Medical History: Denies: Hx Peritoneal Dialysis Musculoskeltal Medical History: Denies Hx Arthritis, Reports Hx Fibromyalgia, Reports Hx Muscular Dystrophy Psychiatric Medical History: Reports: Hx Anxiety, Hx Depression Past Surgical History: Reports: Hx Cholecystectomy, Hx Hysterectomy, Hx Tonsillectomy - Immunizations Immunizations up to date: Yes Hx Diphtheria, Pertussis, Tetanus Vaccination: Yes Physical Exam - Vital signs Vitals: Temp Pulse Resp BP Pulse Ox 98.7 F 116 H 16 140/97 H 100 08/30/19 18:51 08/30/19 18:51 08/30/19 18:51 08/30/19 18:51 08/30/19 18:51 Course - Vital Signs Vital signs: Temp Pulse Resp BP Pulse Ox 98.7 F 116 H 16 140/97 H 100 08/30/19 18:51 08/30/19 18:51 08/30/19 18:51 08/30/19 18:51 08/30/19 18:51 Doctor's Discharge - Discharge Referrals: ADRIENNE CABALLERO MD [Primary Care Provider] - Follow up as needed
--- NOTE | 2019-08-30 20:49 | RADIOLOGY REPORT (SQ) ---
EXAM DESCRIPTION: X-ray right fingers, 3 views COMPLETED DATE/TME: 08/30/2019 19:48 CLINICAL HISTORY: 39 years, Female, dog bite COMPARISON: None. NUMBER OF VIEWS: TECHNIQUE: LIMITATIONS: None. FINDINGS: No fracture or dislocation. No evidence of radiopaque foreign body within the soft tissues. Mineralization of bone appears normal. IMPRESSION: No fracture or radiopaque foreign body. copyright 2010 [employer]- All Rights Reserved
[2019-08-30] MEDS ORDERED: ONDANSETRON HCL INJ/PF 4 MG/2 ML SDV IV ONE (21:15)
[2019-08-30] MEDS: AMPICILLIN SOD/SULBACTAM 3 GM VIAL IV ONE ×2 (21:26→21:45)
[2019-08-30] MEDS ORDERED: DIPHENHYDRAMINE HCL 50 MG/ML VIAL IV ONE (21:45)
[2019-08-30] MEDS ORDERED: METOCLOPRAMIDE HCL INJ/PF 10 MG/2 ML SDV IV ONE (21:45)
--- NOTE | 2019-08-30 21:48 | ER Document Report ---
ED General - General Chief Complaint: Dog Bite Stated Complaint: DOG BITE Time Seen by Provider: 08/30/19 19:43 Primary Care Provider: ADRIENNE CABALLERO MD [Primary Care Provider] - Follow up as needed Notes: Patient is a 39-year-old female that comes emergency department for chief complaint of dog bite to her left middle finger over the dorsal aspect. The dog was a 2-hour, the dog approached her dog and they started fighting, she attempted to break up the fight and was bitten over the hand. This happened at 4 PM, she states she went to urgent care, was found to have a temperature of 100.2 and was referred to the emergency department. Patient states that while she was going to the urgent care she developed a throbbing headache behind her eyes, light sensitivity, nausea. She still states she has a throbbing headache. She denies vomiting, neck stiffness, sore throat, cough, abdominal pain, or any other complaints. Her tetanus is not up-to-date. Past medical history of muscular dystrophy, anxiety/depression, and migraines. She states she has had a headache like this previously but not in a while. She had her temperature rechecked here and she was not found to have a fever, she states she did not take anything prior to arrival either. TRAVEL OUTSIDE OF THE [place] IN LAST 30 DAYS: No - Related Data Allergies/Adverse Reactions: aripiprazole [From Abilify] Allergy (Severe, Verified 05/11/18 21:03) Confusion Iodinated Contrast Media [IV Dye, Iodine Containing] Allergy (Severe, Verified 05/11/18 21:03) Difficulty breathing tramadol [Tramadol] Allergy (Severe, Verified 05/11/18 21:03) Hives amitriptyline Allergy (Intermediate, Verified 05/11/18 21:03) swelling Past Medical History - General Information source: Patient - Social History Smoking Status: Current Every Day Smoker Frequency of alcohol use: None Drug Abuse: None Lives with: Family Family History: Reviewed & Not Pertinent Patient has suicidal ideation: No Patient has homicidal ideation: No - Past Medical History Cardiac Medical History: Reports: Hx Hypertension - history of Denies: Hx Coronary Artery Disease, Hx Heart Attack Pulmonary Medical History: Reports: Hx Asthma, Hx Sleep Apnea Denies: Hx Bronchitis, Hx COPD, Hx Pneumonia Neurological Medical History: Reports: Hx Seizures. Denies: Hx Cerebrovascular Accident Renal/ Medical History: Denies: Hx Peritoneal Dialysis Musculoskeletal Medical History: Denies Hx Arthritis, Reports Hx Fibromyalgia, Reports Hx Muscular Dystrophy Psychiatric Medical History: Reports: Hx Anxiety, Hx Depression Past Surgical History: Reports: Hx Cholecystectomy, Hx Hysterectomy, Hx Tonsillectomy - Immunizations Immunizations up to date: Yes Hx Diphtheria, Pertussis, Tetanus Vaccination: Yes Review of Systems - Review of Systems Constitutional: No symptoms reported EENT: No symptoms reported Cardiovascular: No symptoms reported Respiratory: No symptoms reported Gastrointestinal: No symptoms reported Genitourinary: No symptoms reported Female Genitourinary: No symptoms reported Musculoskeletal: See HPI Skin: See HPI Hematologic/Lymphatic: No symptoms reported Neurological/Psychological: See HPI Physical Exam - Vital signs Vitals: Temp Pulse Resp BP Pulse Ox 98.7 F 116 H 16 140/97 H 100 08/30/19 18:51 08/30/19 18:51 08/30/19 18:51 08/30/19 18:51 08/30/19 18:51 - Notes Notes: GENERAL: Alert, interacts well. Patient is squinting in the light but otherwise is well-appearing HEAD: Normocephalic, atraumatic. EYES: Pupils equal, round, and reactive to light. Extraocular movements intact. Some mild photophobia ENT: Oral mucosa moist, tongue midline. Oropharynx unremarkable. Airway patent. NECK: Full range of motion. Supple. Trachea midline. LUNGS: Clear to auscultation bilaterally, no wheezes, rales, or rhonchi. No respiratory distress. HEART: Regular rate and rhythm. No murmur ABDOMEN: Soft, non-tender. Non-distended. Bowel sounds present in all 4 quadrants. GENITOURINARY: Deferred EXTREMITIES: There is a very small horizontal dorsal less than 1 cm laceration which is superficial over the left middle finger. This is between the MCP and PIP. Normal range of motion at the MCP, PIP, DIP. Normal strength against resistance with flexion and extension. Normal capillary refill and sensation. No injuries or concerning findings otherwise. BACK: no cervical, thoracic, lumbar midline tenderness. No saddle anesthesia, normal distal neurovascular exam. Moves all extremities in full range of motion. NEUROLOGICAL: Alert and oriented x3. Normal speech. Cranial nerves II through XII grossly intact. PSYCH: Normal affect, normal mood. SKIN: Warm, dry, normal turgor. No rashes or lesions noted. Course - Re-evaluation Re-evalutation: Patient with a very small superficial laceration over the left third phalanx. No evidence of concerning injury, no deficits, no severe wound, this was cleaned and dressed with a simple Band-Aid. I did review x-ray from triage and this was unremarkable. Patient was complaining of migraine-like symptoms, this resolved after treatment, patient calling out and requesting to go home. Patient tolerated Augmentin without any difficulty. I discussed rabies vaccine because dog was unknown and is not known to be vaccinated, however patient declined despite me discussing the risks. Discussed expectations, follow-up, return precautions. Patient states understanding and agreement. Stable time of discharge. - Vital Signs Vital signs: Temp Pulse Resp BP Pulse Ox 97.6 F 91 18 111/67 99 08/30/19 23:44 08/30/19 23:44 08/30/19 23:44 08/30/19 23:44 08/30/19 23:44 Discharge - Discharge Clinical Impression: Dog bite Qualifiers: Encounter type: initial encounter Qualified Code(s): W54.0XXA - Bitten by dog, initial encounter Headache Qualifiers: Headache type: unspecified Headache chronicity pattern: acute headache Intractability: not intractable Qualified Code(s): R51 - Headache Condition: Stable Disposition: HOME, SELF-CARE Additional Instructions: Take the antibiotic as prescribed for the dog bite wound. Keep the wound clean, clean with soap and water, you can apply a clean dressing and topical antibiotic to the area. I recommend taking a probiotic [id number] to avoid diarrhea while taking the antibiotic. Follow-up with primary care for additional evaluation and management of migraine headaches as well. Return for any concerning symptoms including developing swelling, redness, discolored discharge, fever, returned severe headache, vomiting, or any other concerning or worsening symptoms. Prescriptions: Amox Tr/Potassium Clavulanate [Augmentin 875-125 Tablet] 1 tab PO BID 7 Days #14 tablet Forms: Return to Work Referrals: ADRIENNE CABALLERO MD [Primary Care Provider] - Follow up as needed
[2019-08-30] MEDS ORDERED: AMOXICILLIN TR/POT CLAVULANATE 500-125 MG TAB PO ONE (23:01)
[2019-08-30] MEDS ORDERED: AMOXICILLIN TRIHYDRATE 500 MG CAPSULE PO ONE (23:03)
[2019-08-30 23:45] VITALS: BP 111/67
[2019-08-30] MEDS ORDERED: KETOROLAC TROMETHAMINE INJ/PF 30 MG/1 ML SDV IV ONE (23:49)
== END 2019-08-31 00:03 | disposition home or self-care (01) ==
LOC: ER 18:46
DX: S61.213A Laceration without foreign body of left middle finger without damage to nail, initial encounter (principal); R51 Headache; W54.0XXA Bitten by dog, initial encounter; Z90.49 Acquired absence of other specified parts of digestive tract; Z90.710 Acquired absence of both cervix and uterus; Z23 Encounter for immunization
CPT/HCPCS: 99283; 96361; 90471; 96374; 96375; 73140; 90715; J1200; J1885; J2765; J2405; J7030; J0295

== ENCOUNTER 2019-08-31 07:08 | Emergency (ER) | payer OTHER ==
[2019-08-31] MEDS ORDERED: DIPHENHYDRAMINE HCL 50 MG/ML VIAL IV ONE (08:03)
[2019-08-31] MEDS ORDERED: KETOROLAC TROMETHAMINE INJ/PF 30 MG/1 ML SDV IV ONE (08:03)
[2019-08-31] MEDS ORDERED: METOCLOPRAMIDE HCL INJ/PF 10 MG/2 ML SDV IV ONE (08:03)
[2019-08-31] MEDS ORDERED: RINGERS SOLUTION,LACTATED 1,000 ML IV ONE (08:03)
--- NOTE | 2019-08-31 08:04 | ER Document Report ---
ED General - General Chief Complaint: Headache Stated Complaint: HEADACHE,NAUSEA Primary Care Provider: ADRIENNE CABALLERO MD [Primary Care Provider] - Follow up as needed Notes: 39-year-old female with a history of headaches and muscular dystrophy as well as muscle spasm presents with gradual onset holocephalic headache, about 18 hours ago last night. Got worse this morning at work where she was light sensitive and nauseous and she was brought in by her coworker. Not rapid onset not worst of life, similar but slightly different than past headaches. Denies focal numbness weakness or tingling but feels dizzy. TRAVEL OUTSIDE OF THE [place] IN LAST 30 DAYS: No - Related Data Allergies/Adverse Reactions: aripiprazole [From Abilify] Allergy (Severe, Verified 05/11/18 21:03) Confusion Iodinated Contrast Media [IV Dye, Iodine Containing] Allergy (Severe, Verified 05/11/18 21:03) Difficulty breathing tramadol [Tramadol] Allergy (Severe, Verified 05/11/18 21:03) Hives amitriptyline Allergy (Intermediate, Verified 05/11/18 21:03) swelling Past Medical History - Social History Smoking Status: Unknown if Ever Smoked Family History: Reviewed & Not Pertinent Patient has suicidal ideation: No Patient has homicidal ideation: No - Past Medical History Cardiac Medical History: Reports: Hx Hypertension - history of Denies: Hx Coronary Artery Disease, Hx Heart Attack Pulmonary Medical History: Reports: Hx Asthma, Hx Sleep Apnea Denies: Hx Bronchitis, Hx COPD, Hx Pneumonia Neurological Medical History: Reports: Hx Seizures. Denies: Hx Cerebrovascular Accident Renal/ Medical History: Denies: Hx Peritoneal Dialysis Musculoskeletal Medical History: Denies Hx Arthritis, Reports Hx Fibromyalgia, Reports Hx Muscular Dystrophy Psychiatric Medical History: Reports: Hx Anxiety, Hx Depression Past Surgical History: Reports: Hx Cholecystectomy, Hx Hysterectomy, Hx Tonsillectomy - Immunizations Immunizations up to date: Yes Hx Diphtheria, Pertussis, Tetanus Vaccination: Yes Review of Systems - Review of Systems Notes: REVIEW OF SYSTEMS GEN: Denies fever, chills, weight loss ENT: Denies sore throat, nasal discharge, ear pain EYES: Photophobia no blurry vision CV: Denies chest pain, palpitations, edema RESP: Denies cough, shortness of breath, wheezing GI: Denies abdominal pain, nausea, vomiting, diarrhea MSK: Denies joint pain/swelling, edema, SKIN: Denies rash, skin lesions LYMPH: Denies swollen glands/lymph nodes NEURO: Positive headache and dizziness PSYCH: Denies depression, suicidal or homicidal ideation PHYSICAL EXAMINATION General: Appears in pain covering eyes: Head: Atraumatic, normocephalic ENT: Mouth normal, oropharynx moist, no exudates or tonsillar enlargement Eyes: Conjunctiva normal, pupils equal, lids normal Neck: No JVD, supple, no guarding CVS: Normal rate, regular rhythm, no murmurs Resp: No resp distress, equal and normal breath sounds bilaterally GI: Nondistended, soft, no tenderness to palpation, no rebound or guarding Ext: No deformities, no edema, normal range of motion in upper and lower ext Back: No CVA or midline TTP Skin: No rash, warm Lymphatic: No lymphadeopathy noted Neuro: Awake, alert. Face symmetric. GCS 15. Normal cranial nerves. Physical Exam - Vital signs Vitals: Temp Pulse Resp BP Pulse Ox 98.7 F 114 H 18 142/98 H 100 08/31/19 07:14 08/31/19 07:14 08/31/19 07:14 08/31/19 07:14 08/31/19 07:14 Course - Re-evaluation Re-evalutation: 08/31/19 10:29 Patient presents with headache non-positional with photophobia and nausea similar to past. Initially she states she is never had a history of migraines but then says she may have. I do not think this is meningitis given that she has no fever or nuchal rigidity. I gave her a round of migraine medicine and did a head CT: This was negative. She mentioned to the nurse that she had "a pseudo-tumor" this is not in her records anywhere. She is obese. I will give her a second round of medication. I do believe she will probably require transfer given that she is not improving. I again do not feel that she needs immediate lumbar puncture or antibiotics for infection at this point. I will contact [facility] who has [facility]y backup. 08/31/19 12:[address] Blackwood from [facility] who will admit/accept for transfer and consult neurology on arrival. He is with plan. - Vital Signs Vital signs: Temp Pulse Resp BP Pulse Ox 97.9 F 114 H 16 113/74 98 08/31/19 12:09 08/31/19 07:14 08/31/19 12:01 08/31/19 12:01 08/31/19 12:01 - Diagnostic Test Radiology reviewed: Image reviewed, Reports reviewed Discharge - Discharge Clinical Impression: Intractable headache Qualifiers: Headache type: unspecified Headache chronicity pattern: unspecified pattern Qualified Code(s): R51 - Headache Condition: Fair Disposition: [facility] Referrals: ADRIENNE CABALLERO MD [Primary Care Provider] - Follow up as needed
[2019-08-31] MEDS ORDERED: HYDROMORPHONE HCL INJ/PF 2 MG/ML AMPULE IV ONE (10:27)
--- NOTE | 2019-08-31 10:44 | RADIOLOGY REPORT (SQ) ---
EXAM DESCRIPTION: CT HEAD WITHOUT COMPLETED DATE/TIME: 08/31/2019 10:24 am REASON FOR STUDY: [place] COMPARISON: None. TECHNIQUE: Axial images acquired through the brain without intravenous contrast. Images reviewed wi th bone, brain and subdural windows. Additional sagittal and coronal reconstructions were generated. Images stored on PACS. All CT scanners at this facility use dose modulation, iterative reconstruction, and/or weight based d osing when appropriate to reduce radiation dose to as low as reasonably achievable (ALARA). [facility]: Dose Right [facility]: CareDose [facility]: Dose Right [facility]: Teradose 4D [facility]: alooma RADIATION DOSE: CT Rad equipment meets quality standard of care and radiation dose reduction techniq ues were employed. CTDIvol: 48.7 mGy. DLP: 980 mGy-cm. mGy. LIMITATIONS: None. FINDINGS: VENTRICLES: Normal size and contour. CEREBRUM: No masses. No hemorrhage. No midline shift. No evidence for acute infarction. Normal gra y/white matter differentiation. No areas of low density in the white matter. CEREBELLUM: No masses. No hemorrhage. No alteration of density. No evidence for acute infarction. Mild low lying cerebellar tonsils extending 2 mm below the foramen magnum. EXTRAAXIAL SPACES: No fluid collections. No masses. ORBITS AND GLOBE: No intra- or extraconal masses. Normal contour of globe without masses. CALVARIUM: No fracture. PARANASAL SINUSES: No fluid or mucosal thickening. SOFT TISSUES: No mass or hematoma. OTHER: No other significant finding. IMPRESSION: No evidence of acute intracranial process. Mild low lying cerebellar tonsils extending 2 mm below the foramen magnum. EVIDENCE OF ACUTE STROKE: NO. COMMENT: Quality ID # [id number]: Final reports with documentation of one or more dose reduction techniques (e.g., Automated exposure control, adjustment of the mA and/or kV according to patient size, use of iterative reconstruction technique) TECHNICAL DOCUMENTATION: JOB ID: [id number] [employer]- All Rights Reserved Reading location - IP/workstation name: [email or web address]
[2019-08-31 14:15] VITALS: BP 133/86
== END 2019-08-31 13:50 | disposition short-term general hospital (02) ==
LOC: ER 07:08
DX: R51 Headache (principal); R11.0 Nausea; H53.149 Visual discomfort, unspecified; R42 Dizziness and giddiness; E66.9 Obesity, unspecified; J45.909 Unspecified asthma, uncomplicated; I10 Essential (primary) hypertension; Z88.8 Allergy status to other drugs, medicaments and biological substances; Z91.041 Radiographic dye allergy status; Z88.6 Allergy status to analgesic agent
CPT/HCPCS: 99285; 96361; 96374; 96375; 70450; J1200; J1885; J2765; J1170; J7120

== ENCOUNTER 2020-03-22 18:04 | Emergency (ER) | payer OTHER ==
[2020-03-22] MEDS ORDERED: KETOROLAC TROMETHAMINE 60 MG/2 ML SDV IM ONE (18:56)
[2020-03-22] MEDS ORDERED: DEXAMETHASONE SOD PHOS INJ 10 MG/1 ML VIAL IM ONE (18:56)
--- NOTE | 2020-03-22 19:30 | ER Document Report ---
ED Medical Screen (RME) - General Chief Complaint: Back Pain Stated Complaint: BACK PAIN Time Seen by Provider: 03/22/20 18:49 Primary Care Provider: ADRIENNE CABALLERO MD [Primary Care Provider] - Follow up as needed Notes: Patient is a 39-year-old female who presents the emergency department with a chief complaint of low back pain. Patient states that she went to physical therapy and since then, she has numbness and tingling in both her legs. She saw her neurologist who then referred her to the orthopedic doctor. The orthopedic doctor told her today that she needed to be evaluated in the emergency departm ent. Exam: Tender mid lower back. I have greeted and performed a rapid initial assessment of this patient. A comprehensive ED assessment and evaluation of the patient, analysis of test results and completion of medical decision making process will be conducted by an additional ED providers. TRAVEL OUTSIDE OF THE [place] IN LAST 30 DAYS: No - Related Data Allergies/Adverse Reactions: aripiprazole [From Abilify] Allergy (Severe, Verified 03/22/20 18:48) Confusion Iodinated Contrast Media [IV Dye, Iodine Containing] Allergy (Severe, Verified 03/22/20 18:48) Difficulty breathing tramadol [Tramadol] Allergy (Severe, Verified 03/22/20 18:48) Hives amitriptyline Allergy (Intermediate, Verified 03/22/20 18:48) swelling Past Medical History - Social History Chew tobacco use (# tins/day): No Frequency of alcohol use: None Drug Abuse: None - Past Medical History Cardiac Medical History: Reports: Hx Hypertension - history of Denies: Hx Coronary Artery Disease, Hx Heart Attack Pulmonary Medical History: Reports: Hx Asthma, Hx Sleep Apnea Denies: Hx Bronchitis, Hx COPD, Hx Pneumonia Neurological Medical History: Reports: Hx Seizures. Denies: Hx Cerebrovascular Accident Renal/ Medical History: Denies: Hx Peritoneal Dialysis Musculoskeltal Medical History: Denies Hx Arthritis, Reports Hx Fibromyalgia, Reports Hx Muscular Dystrophy Psychiatric Medical History: Reports: Hx Anxiety, Hx Depression Past Surgical History: Reports: Hx Cholecystectomy, Hx Hysterectomy, Hx Tonsillectomy - Immunizations Immunizations up to date: Yes Hx Diphtheria, Pertussis, Tetanus Vaccination: Yes Physical Exam - Vital signs Vitals: Temp Pulse Resp BP Pulse Ox 98.9 F 108 H 20 139/92 H 108 H 03/22/20 18:06 03/22/20 18:06 03/22/20 18:06 03/22/20 18:06 03/22/20 18:06 Course - Vital Signs Vital signs: Temp Pulse Resp BP Pulse Ox 98.9 F 108 H 20 139/92 H 108 H 03/22/20 18:06 03/22/20 18:06 03/22/20 18:06 03/22/20 18:06 03/22/20 18:06 - Laboratory Result Diagrams: 03/22/20 19:42 03/22/20 19:42 Doctor's Discharge - Discharge Referrals: ADRIENNE CABALLERO MD [Primary Care Provider] - Follow up as needed
[2020-03-22 20:01] LABS: ABSOLUTE EOSINOPHILS # (AUTO) 0.2 10^3/uL (0.0-0.6); ABSOLUTE LYMPHOCYTES (AUTO) 2.4 10^3/uL (0.5-4.7); ABSOLUTE MONOCYTES (AUTO) 0.4 10^3/uL (0.1-1.4); ABSOLUTE NEUT (AUTO) 3.9 10^3/uL (1.7-8.2); BASOPHILS % (AUTO) 0.3 % (0-2); EOSINOPHILS % (AUTO) 3.4 % (0-6); HEMATOCRIT 41.7 % (36.0-47.0); HEMOGLOBIN 14.3 g/dL (12.0-15.5); LYMPHOCYTES % (AUTO) 34.6 % (13-45); MEAN CORPUSCULAR HEMOGLOBIN 32.4 pg (27.0-33.4); MEAN CORPUSCULAR HGB CONC 34.2 g/dL (32.0-36.0); MEAN CORPUSCULAR VOLUME 95 fl (80-97); MONOCYTES % (AUTO) 5.3 % (3-13); PLATELET COUNT 223 10^3/uL (150-450); RED BLOOD COUNT 4.41 10^6/uL (3.72-5.28); RED CELL DISTRIBUTION WIDTH 12.6 % (11.5-14.0); SEGMENTED NEUTROPHILS % (AUTO) 56.4 % (42-78); TOTAL CELLS COUNTED % (AUTO) 100 %; WHITE BLOOD COUNT 6.8 10^3/uL (4.0-10.5)
[2020-03-22 20:18] LABS: ALBUMIN 4.5 g/dL (3.5-5.0); ALKALINE PHOSPHATASE 88 U/L (38-126); ASPARTATE AMINO TRANSFERASE 28 U/L (14-36); BILIRUBIN,TOTAL 0.3 mg/dL (0.2-1.3); BLOOD UREA NITROGEN 13 mg/dL (7-20); CALCIUM 9.5 mg/dL (8.4-10.2); CARBON DIOXIDE 30 mmol/L (22-30); GLUCOSE 104 mg/dL (75-110); POTASSIUM 4.7 mmol/L (3.6-5.0); TOTAL PROTEIN 7.6 g/dL (6.3-8.2)
[2020-03-22 20:24] LABS: ANION GAP 5 (5-19); CHLORIDE 103 mmol/L (98-107)
--- NOTE | 2020-03-22 20:31 | RADIOLOGY REPORT (SQ) ---
EXAM DESCRIPTION: XR LUMBAR SPINE ANTEROPOSTERIOR, LATERAL, AND OBLIQUES, 5 views COMPLETED DATE/TME: 03/22/2020 19:29 CLINICAL HISTORY: 39 years, Female, low back pain COMPARISON: X-ray lumbar spine 04/28/2015 NUMBER OF VIEWS: TECHNIQUE: LIMITATIONS: None. FINDINGS: There is mild degenerative vertebral body spurring involving the anterosuperior body of L4. This is a new finding, as compared with the prior study. There is a mild lumbar dextroscoliosis. No fracture or dislocation. Vertebral bodies are normal in height. The facet joints appear intact. IMPRESSION: Mild degenerative changes involving the body of L4. Mild scoliosis. copyright 2010 [employer]- All Rights Reserved
[2020-03-22] MEDS ORDERED: HYDROCODONE/ACETAMINOPHEN 5-325 MG TABLET PO ONE (21:35)
[2020-03-22 23:43] VITALS: BP 130/84
== END 2020-03-23 02:22 | disposition left against medical advice (07) ==
LOC: ER 18:04
DX: Z53.20 Procedure and treatment not carried out because of patient's decision for unspecified reasons (principal); M54.9 Dorsalgia, unspecified; M54.5 Low back pain; R20.0 Anesthesia of skin; Z88.8 Allergy status to other drugs, medicaments and biological substances; I10 Essential (primary) hypertension; J45.909 Unspecified asthma, uncomplicated
CPT/HCPCS: 99281; 96372; 36415; 85025; 80053; 72110; J1885; J1100

== ENCOUNTER 2020-03-23 13:28 | Emergency (ER) | payer OTHER ==
--- NOTE | 2020-03-23 14:11 | ER Document Report ---
ED General Pain - General Chief Complaint: Back Pain Stated Complaint: LOWER BACK PAIN/LEG NUMBNESS Time Seen by Provider: 03/23/20 14:00 Primary Care Provider: ADRIENNE CABALLERO MD [Primary Care Provider] - Follow up as needed Mode of Arrival: Ambulatory Information source: Patient Notes: Places notes yesterday Patient is a 39-year-old female who presents the emergency department with a chief complaint of low back pain. Patient states that she went to physical therapy and since then, she has numbness and tingling in both her legs. She saw her neurologist who then referred her to the orthopedic doctor. The orthopedic doctor told her today that she needed to be evaluated in the emergency department. Exam: Tender mid lower back. 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 For the last week or so she has been complaining of severe low back pain after some stretching and PT therapy at [facility]. Patient reports now she has severe pain in her low back pointing to her SI area with numbness of her lower legs and feels that she has difficulty walking. She did drive herself to the ER. She reports her 19-year-old son will get off work around 1700 today. He can drive her home. Patient reports she has a history of Juqyxwu-Ftaws-Qknyy disease calling muscular dystrophy. She also has a history of obesity and Chiari malformation. These are notes and her electronic record but she did not mention these. Patient did mention that when she moved from [place] 5 years ago to [place] she was lifting some heavy boxes and went into a tachycardic state in which EMS had to give her some IV medicines to convert her. Yesterday patient had a low back x-ray read by Dr. Gerald Blackburn radiologist who reports DJD and a new anterior superior L4 body spur. She also has scoliosis. Patient reports she had Decadron and Toradol shots last night but they did not help her low back pain. She now reports a 10 out of 10 pain and appears to be in some distress laying in bed #39 gurney. This is in the COVID-19 section but she denies any coronavirus symptoms. TRAVEL OUTSIDE OF THE [place] IN LAST 30 DAYS: No - HPI Onset: Last week Onset/Duration: Sudden, Persistent, Worse Quality of pain: Achy Severity: Severe Pain Level: 5 Context: New onset Typical of prior episodes of painful crisis: Yes - Related Data Allergies/Adverse Reactions: aripiprazole [From Abilify] Allergy (Severe, Verified 03/22/20 18:48) Confusion Iodinated Contrast Media [IV Dye, Iodine Containing] Allergy (Severe, Verified 03/22/20 18:48) Difficulty breathing tramadol [Tramadol] Allergy (Severe, Verified 03/22/20 18:48) Hives amitriptyline Allergy (Intermediate, Verified 03/22/20 18:48) swelling Past Medical History - General Information source: Patient - Social History Smoking Status: Never Smoker Cigarette use (# per day): No Chew tobacco use (# tins/day): No Smoking Education Provided: No Frequency of alcohol use: None Drug Abuse: None Lives with: Family Family History: Reviewed & Not Pertinent Patient has suicidal ideation: No Patient has homicidal ideation: No - Past Medical History Cardiac Medical History: Reports: Hx Hypertension - history of Denies: Hx Coronary Artery Disease, Hx Heart Attack Pulmonary Medical History: Reports: Hx Asthma, Hx Sleep Apnea Denies: Hx Bronchitis, Hx COPD, Hx Pneumonia Neurological Medical History: Reports: Hx Seizures. Denies: Hx Cerebrovascular Accident Renal/ Medical History: Denies: Hx Peritoneal Dialysis Musculoskeletal Medical History: Denies Hx Arthritis, Reports Hx Fibromyalgia, Reports Hx Muscular Dystrophy Psychiatric Medical History: Reports: Hx Anxiety, Hx Depression Past Surgical History: Reports: Hx Cholecystectomy, Hx Hysterectomy, Hx Tonsillectomy - Immunizations Immunizations up to date: Yes Hx Diphtheria, Pertussis, Tetanus Vaccination: Yes Review of Systems - Review of Systems Constitutional: No symptoms reported EENT: No symptoms reported Cardiovascular: No symptoms reported Respiratory: No symptoms reported Gastrointestinal: No symptoms reported Genitourinary: No symptoms reported Female Genitourinary: No symptoms reported Musculoskeletal: See HPI, Back pain, Other - left knee pain Skin: No symptoms reported Hematologic/Lymphatic: No symptoms reported Neurological/Psychological: No symptoms reported Physical Exam - Vital signs Vitals: Temp Pulse Resp BP Pulse Ox 98.2 F 106 H 18 125/74 97 03/23/20 14:32 03/23/20 14:32 03/23/20 14:32 03/23/20 14:32 03/23/20 14:32 Interpretation: Tachycardic - General General appearance: Anxious - HEENT Head: Normocephalic, Atraumatic Eyes: Normal Pupils: PERRL Sinus: Normal Mouth/Lips: Normal Mucous membranes: Normal Pharynx: Normal Neck: Normal - Respiratory Respiratory status: No respiratory distress Chest status: Nontender Breath sounds: Normal Chest palpation: Normal - Cardiovascular Rhythm: Regular Heart sounds: Normal auscultation Murmur: No - Abdominal Inspection: Normal Distension: No distension Bowel sounds: Normal Tenderness: Nontender Organomegaly: No organomegaly - Rectal Tenderness: - Is a 1 Hemorrhoids: Other - deferred - Genitourinary Bimanuel exam: Other - deferred - Back Back: Tender, Scoliosis - very tender kaitlyn SI and LS on ROM /palp - Extremities General upper extremity: Normal inspection General lower extremity: Normal inspection Knee: Tender - left knee in flexed position - Neurological Neuro grossly intact: Yes Cognition: Normal Orientation: AAOx4 Molly Coma Scale Eye Opening: Spontaneous Molly Coma Scale Verbal: Oriented Molly Coma Scale Motor: Obeys Commands Molly Coma Scale Total: 15 Speech: Normal Motor strength normal: LUE, RUE, LLE, RLE Sensory: Normal - Psychological Associated symptoms: Anxious - Skin Skin Temperature: Warm Skin Moisture: Dry Course - Vital Signs Vital signs: Temp Pulse Resp BP Pulse Ox 98.2 F 106 H 18 125/74 97 03/23/20 14:32 03/23/20 14:32 03/23/20 14:32 03/23/20 14:32 03/23/20 14:32 - Diagnostic Test Radiology reviewed: Reports reviewed Discharge - Discharge Clinical Impression: L4 back spur Back pain Qualifiers: Back pain location: low back pain Chronicity: chronic Back pain laterality: unspecified Sciatica presence: with sciatica Sciatica laterality: bilateral sciatica Qualified Code(s): M54.41 - Lumbago with sciatica, right side Condition: Good Disposition: HOME, SELF-CARE Additional Instructions: Follow-up with pain management like with [facility] or with your personal doctor. Avoid doing physical therapy until evaluated by personal doctor. Take medicines as directed avoid bending lifting twisting or using your lower back. Prescriptions: Indomethacin [Indocin 25 Mg Capsule] 25 mg PO BID PRN #14 capsule PRN Reason: Chlorzoxazone [Parafon Forte Dsc 500 Mg Tablet] 500 mg PO BID PRN #20 tablet PRN Reason: Pain Scale Of 1 Referrals: ADRIENNE CABALLERO MD [Primary Care Provider] - Follow up as needed
[2020-03-23 14:37] VITALS: BP 125/74
[2020-03-23] MEDS ORDERED: HYDROMORPHONE HCL INJ/PF 2 MG/ML AMPULE IM ONE (14:50)
[2020-03-23] MEDS ORDERED: PROMETHAZINE HCL INJ 25 MG/1 ML VIAL IM ONE (14:50)
[2020-03-23] MEDS ORDERED: METHOCARBAMOL 500 MG TABLET PO ONE (14:50)
--- NOTE | 2020-03-23 15:25 | RADIOLOGY REPORT (SQ) ---
EXAM DESCRIPTION: CT ABD/PELVIS NO ORAL OR IV IMAGES COMPLETED DATE/TIME: 03/23/2020 3:07 pm REASON FOR STUDY: lbp 06/04 COMPARISON: Same day radiograph TECHNIQUE: CT scan of the abdomen and pelvis performed without intravenous or oral contrast. Images reviewed with lung, soft tissue, and bone windows. Reconstructed coronal and sagittal MPR images revi ewed. All images stored on PACS. All CT scanners at this facility use dose modulation, iterative reconstruction, and/or weight based d osing when appropriate to reduce radiation dose to as low as reasonably achievable (ALARA). [facility]: Dose Right [facility]: CareDose [facility]: Dose Right [facility]: Teradose 4D [facility]: Bocada RADIATION DOSE: CT Rad equipment meets quality standard of care and radiation dose reduction techniq ues were employed. CTDIvol: 17.9 mGy. DLP: 1095 mGy-cm.mGy. LIMITATIONS: None. FINDINGS: LOWER CHEST: No significant findings. No nodules or infiltrates. NON-CONTRASTED LIVER, SPLEEN, ADRENALS: Evaluation limited by lack of IV contrast. No identified sign ificant masses. PANCREAS: No masses. No peripancreatic inflammatory changes. GALLBLADDER: Surgically absent. RIGHT KIDNEY AND URETER: No suspicious masses. Assessment limited by lack of IV contrast. No signif icant calcifications. No hydronephrosis or hydroureter. LEFT KIDNEY AND URETER: No suspicious masses. Assessment limited by lack of IV contrast. No signifi cant calcifications. No hydronephrosis or hydroureter. AORTA AND RETROPERITONEUM: No aneurysm. No retroperitoneal masses or adenopathy. BOWEL AND PERITONEAL CAVITY: No obvious masses or inflammatory changes. No free fluid. APPENDIX: Normal. PELVIS, BLADDER, AND ABDOMINAL WALL:No abnormal masses. No free fluid. Bladder normal. Low small kaitlyn ateral fat containing inguinal hernias. BONES: No significant findings. OTHER: No other significant finding. IMPRESSION: No evidence of acute intra-abdominal/pelvic process. Normal appendix. Prior cholecystectomy. COMMENT: Quality ID # [id number]: Final reports with documentation of one or more dose reduction techniques (e.g., Automated exposure control, adjustment of the mA and/or kV according to patient size, use of iterative reconstruction technique) TECHNICAL DOCUMENTATION: JOB ID: [id number] 2010 [employer]- All Rights Reserved Reading location - IP/workstation name: [email or web address]
== END 2020-03-23 18:25 | disposition home or self-care (01) ==
LOC: ER 13:28
DX: M25.78 Osteophyte, vertebrae (principal); M54.41 Lumbago with sciatica, right side; M54.9 Dorsalgia, unspecified; R20.0 Anesthesia of skin; G60.0 Hereditary motor and sensory neuropathy; G71.00 Muscular dystrophy, unspecified; Z88.8 Allergy status to other drugs, medicaments and biological substances; I10 Essential (primary) hypertension; J45.909 Unspecified asthma, uncomplicated
CPT/HCPCS: 99283; 96372; 74176; J1170; J2550

== ENCOUNTER 2020-05-01 15:12 | Emergency (ER) | payer OTHER ==
--- NOTE | 2020-05-01 15:48 | ER Document Report ---
ED Medical Screen (RME) - General Chief Complaint: Hip Pain Stated Complaint: RIGHT HIP PAIN Time Seen by Provider: 05/01/20 15:46 Primary Care Provider: ADRIENNE CABALLERO MD [Primary Care Provider] - Follow up as needed Mode of Arrival: Wheelchair Information source: Patient Notes: 39-year-old female presents to ED for complaint of increased low back pain. She states she had an SI joint injection at [facility] surgery on 825. She states she has not had any fever or any loss control of bowel bladder but she has had increasing pain and now is going down her right hip. She states the pain is so bad she is tried Percocet she is tried all of her medicines at home and nothing is helping the pain. She does have a chronic back pain as well as muscular dystrophy. I have greeted and performed a rapid initial assessment of this patient. A comprehensive ED assessment and evaluation of the patient, analysis of test results and completion of medical decision making process will be conducted by an additional ED providers. TRAVEL OUTSIDE OF THE [place] IN LAST 30 DAYS: No - Related Data Allergies/Adverse Reactions: aripiprazole [From Abilify] Allergy (Severe, Verified 05/01/20 15:38) Confusion Iodinated Contrast Media [IV Dye, Iodine Containing] Allergy (Severe, Verified 05/01/20 15:38) Difficulty breathing tramadol [Tramadol] Allergy (Severe, Verified 05/01/20 15:38) Hives amitriptyline Allergy (Intermediate, Verified 05/01/20 15:38) swelling Past Medical History - Past Medical History Cardiac Medical History: Reports: Hx Hypertension - history of Denies: Hx Coronary Artery Disease, Hx Heart Attack Pulmonary Medical History: Reports: Hx Asthma, Hx Sleep Apnea Denies: Hx Bronchitis, Hx COPD, Hx Pneumonia Neurological Medical History: Reports: Hx Seizures. Denies: Hx Cerebrovascular Accident Renal/ Medical History: Denies: Hx Peritoneal Dialysis Musculoskeltal Medical History: Denies Hx Arthritis, Reports Hx Fibromyalgia, Reports Hx Muscular Dystrophy Psychiatric Medical History: Reports: Hx Anxiety, Hx Depression Past Surgical History: Reports: Hx Cholecystectomy, Hx Hysterectomy, Hx Tonsillectomy - Immunizations Immunizations up to date: Yes Hx Diphtheria, Pertussis, Tetanus Vaccination: Yes Physical Exam - Vital signs Vitals: Temp Pulse Resp BP Pulse Ox 98.4 F 116 H 18 142/97 H 100 05/01/20 15:32 05/01/20 15:32 05/01/20 15:32 05/01/20 15:32 05/01/20 15:32 Course - Vital Signs Vital signs: Temp Pulse Resp BP Pulse Ox 98.4 F 116 H 18 142/97 H 100 05/01/20 15:32 05/01/20 15:32 05/01/20 15:32 05/01/20 15:32 05/01/20 15:32 Doctor's Discharge - Discharge Referrals: ADRIENEN CABALLERO MD [Primary Care Provider] - Follow up as needed
[2020-05-01 16:18] LABS: ABSOLUTE BASOPHILS # (AUTO) 0.1 10^3/uL (0.0-0.2); ABSOLUTE EOSINOPHILS # (AUTO) 0.1 10^3/uL (0.0-0.6); ABSOLUTE LYMPHOCYTES (AUTO) 3.7 10^3/uL (0.5-4.7); ABSOLUTE MONOCYTES (AUTO) 0.6 10^3/uL (0.1-1.4); ABSOLUTE NEUT (AUTO) 6.3 10^3/uL (1.7-8.2); BASOPHILS % (AUTO) 0.5 % (0-2); EOSINOPHILS % (AUTO) 0.9 % (0-6); HEMATOCRIT 46.4 % (36.0-47.0); LYMPHOCYTES % (AUTO) 34.5 % (13-45); MEAN CORPUSCULAR HEMOGLOBIN 32.7 pg (27.0-33.4); MEAN CORPUSCULAR HGB CONC 34.4 g/dL (32.0-36.0); MEAN CORPUSCULAR VOLUME 95 fl (80-97); MONOCYTES % (AUTO) 5.6 % (3-13); PLATELET COUNT 283 10^3/uL (150-450); RED BLOOD COUNT 4.88 10^6/uL (3.72-5.28); RED CELL DISTRIBUTION WIDTH 13.4 % (11.5-14.0); SEGMENTED NEUTROPHILS % (AUTO) 58.5 % (42-78); TOTAL CELLS COUNTED % (AUTO) 100 %; WHITE BLOOD COUNT 10.8 10^3/uL (4.0-10.5)
[2020-05-01 16:22] LABS: APPEARANCE,URINE SLIGHTLY-CLOUDY; BILIRUBIN,URINE NEGATIVE (NEGATIVE); COLOR,URINE YELLOW; GLUCOSE, URINE NEGATIVE (NEGATIVE); KETONES,URINE NEGATIVE (NEGATIVE); LEUKOCYTE ESTERASE,URINE NEGATIVE (NEGATIVE); NITRITE,URINE NEGATIVE (NEGATIVE); PROTEIN,URINE NEGATIVE (NEGATIVE); UROBILINOGEN,URINE NEGATIVE mg/dL (<2.0)
[2020-05-01 16:35] LABS: ALBUMIN 4.7 g/dL (3.5-5.0); ALKALINE PHOSPHATASE 80 U/L (38-126); ANION GAP 14 (5-19); ASPARTATE AMINO TRANSFERASE 36 U/L (14-36); BILIRUBIN,DIRECT 0.4 mg/dL (0.0-0.4); BILIRUBIN,TOTAL 0.4 mg/dL (0.2-1.3); BLOOD UREA NITROGEN 12 mg/dL (7-20); CALCIUM 9.7 mg/dL (8.4-10.2); CARBON DIOXIDE 29 mmol/L (22-30); CHLORIDE 99 mmol/L (98-107); GLUCOSE 120 mg/dL (75-110); POTASSIUM 3.8 mmol/L (3.6-5.0); TOTAL PROTEIN 7.9 g/dL (6.3-8.2)
--- NOTE | 2020-05-01 17:09 | RADIOLOGY REPORT (SQ) ---
EXAM DESCRIPTION: HIP RIGHT AP/LATERAL IMAGES COMPLETED DATE/TIME: 05/01/2020 3:38 pm REASON FOR STUDY: PAIN right hip pain. COMPARISON: None. NUMBER OF VIEWS: Two views. TECHNIQUE: AP pelvis and additional frog legview of the right hip. LIMITATIONS: None. FINDINGS: MINERALIZATION: Normal. RIGHT HIP: No fracture or dislocation. No worrisome bone lesions. LEFT HIP: No fracture or dislocation. No worrisome bone lesions. Limited views. PUBIS AND ISCHIUM: No fracture. PELVIS: No fracture. SACRUM: No fracture or dislocation. No worrisome bone lesions. LOWER LUMBAR SPINE: No fracture or dislocation. No worrisome bone lesions. No significant disc disea se. SOFT TISSUES: No findings. OTHER: No other significant finding. IMPRESSION: No radiographic abnormality of the right hip. TECHNICAL DOCUMENTATION: JOB ID: [id number] 2010 [employer]- All Rights Reserved Reading location - IP/workstation name: [email or web address]
--- NOTE | 2020-05-01 17:10 | RADIOLOGY REPORT (SQ) ---
EXAM DESCRIPTION: L SPINE WHOLE IMAGES COMPLETED DATE/TIME: 05/01/2020 3:38 pm REASON FOR STUDY: Increased pain after SI joint injection COMPARISON: None. NUMBER OF VIEWS: Five views including obliques. TECHNIQUE: AP, lateral, oblique, and sacral radiographic images acquired of the lumbar spine. LIMITATIONS: None. FINDINGS: MINERALIZATION: Normal. SEGMENTATION: Normal. No transitional anatomy. ALIGNMENT: Normal. VERTEBRAE: Maintained height. No fracture or worrisome bone lesion. DISCS: Preserved height. No significant osteophytes or end plate irregularity. POSTERIOR ELEMENTS: Pedicles and facets are intact. No pars defect or posterior arch defects. HARDWARE: None in the spine. PARASPINAL SOFT TISSUES: Normal. PELVIS: Intact as visualized. No fractures or worrisome bone lesions. SI joints intact. OTHER: Sacroiliac joints have normal alignment. IMPRESSION: No acute fracture or dislocation of the lumbar spine. Sacroiliac joints have normal ali gnment and appearance. TECHNICAL DOCUMENTATION: JOB ID: [id number] 2010 [employer]- All Rights Reserved Reading location - IP/workstation name: [email or web address]
[2020-05-01] MEDS ORDERED: KETOROLAC TROMETHAMINE INJ/PF 30 MG/1 ML SDV IV ONE (17:12)
[2020-05-01] MEDS ORDERED: DEXAMETHASONE SOD PHOS INJ 10 MG/1 ML VIAL IV ONE (17:12)
--- NOTE | 2020-05-01 18:30 | RADIOLOGY REPORT (SQ) ---
EXAM DESCRIPTION: CT LUMBAR SPINE WITHOUT IMAGES COMPLETED DATE/TIME: 05/01/2020 6:19 pm REASON FOR STUDY: Back pain with radiculopathy COMPARISON: None. TECHNIQUE: Axial images acquired through the lumbar spine without intravenous contrast. Images revi ewed with lung, soft tissue and bone windows. Reconstructed coronal and sagittal MPR images reviewed . All images stored on PACS. All CT scanners at this facility use dose modulation, iterative reconstruction, and/or weight based d osing when appropriate to reduce radiation dose to as low as reasonably achievable (ALARA). [facility]: Dose Right [facility]: CareDose [facility]: Dose Right [facility]: Teradose 4D [facility]: Smart [employer] RADIATION DOSE: mGy. LIMITATIONS: None. FINDINGS: SEGMENTATION: Normal. No transitional anatomy. ALIGNMENT: Very subtle scoliotic curve. Otherwise normal alignment. VERTEBRAL BODIES: No fractures. No dislocation. No acute findings. DISCS: No significant protrusions. Study limited by lack of intrathecal contrast. PEDICLES, TRANSVERSE PROCESSES: No fractures. No dislocation. No acute findings. FACETS, POSTERIOR ELEMENTS: No fractures. No dislocation. No spinal stenosis. HARDWARE: None in the spine. VISUALIZED RIBS: No fractures. SOFT TISSUES: No significant or acute finding in adjacent soft tissues. OTHER: No other significant finding. IMPRESSION: 1. No fracture or bone lesion. Preserved discs throughout without suggestion of significant disc bul ge or hernia. No paraspinal mass. Allowing for minimal scoliosis, normally lumbar spinal alignment. TECHNICAL DOCUMENTATION: JOB ID: [id number] Quality ID # [id number]: Final reports with documentation of one or more dose reduction techniques (e.g., Au tomated exposure control, adjustment of the mA and/or kV according to patient size, use of iterative reconstruction technique) 2010 [employer]- All Rights Reserved Reading location - IP/workstation name: [email or web address]
--- NOTE | 2020-05-01 18:34 | RADIOLOGY REPORT (SQ) ---
EXAM DESCRIPTION: CT RT LOWER EXTREMITY WITHOUT IMAGES COMPLETED DATE/TIME: 05/01/2020 6:19 pm REASON FOR STUDY: Hip pain, focal COMPARISON: Radiographs from earlier. CT lumbar spine from earlier. TECHNIQUE: CT scan of the right hip performed without intravenous or oral contrast. Images reviewed with soft tissue and bone windows. Reconstructed coronal and sagittal MPR images reviewed. All aurelia ges stored on PACS. All CT scanners at this facility use dose modulation, iterative reconstruction, and/or weight based d osing when appropriate to reduce radiation dose to as low as reasonably achievable (ALARA). [facility]: Dose Right [facility]: CareDose [facility]: Dose Right [facility]: Teradose 4D [facility]: Smart [employer] RADIATION DOSE: CT Rad equipment meets quality standard of care and radiation dose reduction techniq ues were employed. CTDIvol: 4.1 mGy. DLP: 80 mGy-cm. mGy. LIMITATIONS: None. FINDINGS: PELVIC BONES: No acute fracture. No worrisome bone lesions. VISUALIZED SPINE: See separate dedicated dictation. SYMPTOMATIC HIP: No acute fracture or dislocation. No worrisome bone lesions. OPPOSITE HIP: Not imaged PELVIC SOFT TISSUES: No significant findings. EXTRAPELVIC SOFT TISSUES: No significant findings. OTHER: No other significant finding. IMPRESSION: NO ACUTE OR SIGNIFICANT FINDINGS IN THE HIP OR PELVIS. TECHNICAL DOCUMENTATION: JOB ID: [id number] Quality ID # [id number]: Final reports with documentation of one or more dose reduction techniques (e.g., Au tomated exposure control, adjustment of the mA and/or kV according to patient size, use of iterative reconstruction technique) 2010 [employer]- All Rights Reserved Reading location - IP/workstation name: [email or web address]
[2020-05-01] MEDS ORDERED: LORAZEPAM INJ 2 MG/1 ML VIAL IV ONE (19:27)
[2020-05-01] MEDS ORDERED: HYDROMORPHONE HCL INJ/PF 2 MG/ML AMPULE IV ONE (19:27)
[2020-05-01 21:05] VITALS: BP 132/85
--- NOTE | 2020-05-01 21:11 | ER Document Report ---
ED General - General Chief Complaint: Hip Pain Stated Complaint: RIGHT HIP PAIN Time Seen by Provider: 05/01/20 15:46 Primary Care Provider: ADRIENNE CABALLERO MD [Primary Care Provider] - Follow up as needed Mode of Arrival: Wheelchair Notes: This 39-year-old woman presents to the emergency department with a complaint of lower back pain and right hip pain. She states that she has had ongoing problems with her lower back for the past month. She had an injection performed proximally 2 weeks ago and since that time she has had an escalation of the pain in her lower back and past few days her right hip began giving her severe pain, she is having some difficulty walking. He denies incontinence of urine or stool and has been using Zanaflex. He denies any associated injury. TRAVEL OUTSIDE OF THE [place] IN LAST 30 DAYS: No - Related Data Allergies/Adverse Reactions: aripiprazole [From Abilify] Allergy (Severe, Verified 05/01/20 15:38) Confusion Iodinated Contrast Media [IV Dye, Iodine Containing] Allergy (Severe, Verified 05/01/20 15:38) Difficulty breathing tramadol [Tramadol] Allergy (Severe, Verified 05/01/20 15:38) Hives amitriptyline Allergy (Intermediate, Verified 05/01/20 15:38) swelling Past Medical History - General Information source: Patient - Social History Smoking Status: Current Every Day Smoker Family History: Reviewed & Not Pertinent Patient has homicidal ideation: No - Past Medical History Cardiac Medical History: Reports: Hx Hypertension - history of Denies: Hx Coronary Artery Disease, Hx Heart Attack Pulmonary Medical History: Reports: Hx Asthma, Hx Sleep Apnea Denies: Hx Bronchitis, Hx COPD, Hx Pneumonia Neurological Medical History: Reports: Hx Seizures. Denies: Hx Cerebrovascular Accident Renal/ Medical History: Denies: Hx Peritoneal Dialysis Musculoskeletal Medical History: Denies Hx Arthritis, Reports Hx Fibromyalgia, Reports Hx Muscular Dystrophy Psychiatric Medical History: Reports: Hx Anxiety, Hx Depression Past Surgical History: Reports: Hx Cholecystectomy, Hx Hysterectomy, Hx Tonsillectomy - Immunizations Immunizations up to date: Yes Hx Diphtheria, Pertussis, Tetanus Vaccination: Yes Review of Systems - Review of Systems Notes: Constitutional: Negative for fever. HENT: Negative for sore throat. Eyes: Negative for visual changes. Cardiovascular: Negative for chest pain. Respiratory: Negative for shortness of breath. Gastrointestinal: Negative for abdominal pain, vomiting or diarrhea. Genitourinary: Negative for dysuria. Musculoskeletal: See HPI Skin: Negative for rash. Neurological: Negative for headaches, weakness or numbness. 10 point ROS negative except as marked above and in HPI. Physical Exam - Vital signs Vitals: Temp Pulse Resp BP Pulse Ox 98.4 F 116 H 18 142/97 H 100 05/01/20 15:32 05/01/20 15:32 05/01/20 15:32 05/01/20 15:32 05/01/20 15:32 - Notes Notes: PHYSICAL EXAMINATION: Physical Exam: General: Well-nourished well-developed in no acute distress HEENT: NC/AT, pupils equal round and reactive to light, MM moist,nares clear, oropharynx clear, airway patent Neck: supple, no adenopathy, no masses. Good range of motion Lungs: clear, no wheezing, no rales no rhonchi CVS: Regular rate and rhythm no murmur gallop or rub Abdomen: Soft, active, nontender, no masses, no hepatosplenomegaly Back: Tenderness in the lower lumbar L3-L4, L5-S1 region of the back right paraspinous muscle group tightness Ext: tenderness over the right hip Neuro: Alert and responsive, moving all 4 extremities on command, cranial nerves intact, no focal findings Skin: Intact no open lesions, no rash PSYCH: Normal mood, normal affect. Course - Re-evaluation Re-evalutation: 05/01/20 21:07 Patient was given Toradol and Decadron in the emergency department and had no improvement in her pain. Plain films of the lower back and right hip were performed and were negative for fracture or dislocation. CT scan of the lumbar spine and of the right lower extremity were read as negative for acute findings, good disc space on the lumbar spine and no fracture noted on the right hip. Given the patient an IV dose of hydromorphone with Lorazepam. She has had an improvement of her pain. She has been discharged home with hydrocodone and Zofran. She is given a prescription for Naprosyn, baclofen and a prednisone Dosepak. She will call her doctor on Saturday and schedule a follow-up. - Vital Signs Vital signs: Temp Pulse Resp BP Pulse Ox 98.4 F 116 H 18 142/97 H 100 05/01/20 15:32 05/01/20 15:32 05/01/20 15:32 05/01/20 15:32 05/01/20 15:32 - Laboratory Result Diagrams: 05/01/20 15:55 05/01/20 15:55 Laboratory results interpreted by me: 05/01/20 05/01/20 15:55 15:55 WBC 10.8 H Hgb 16.0 H Glucose 120 H Discharge - Discharge Clinical Impression: Acute right hip pain Low back pain Qualifiers: Chronicity: acute Back pain laterality: unspecified Sciatica presence: with sciatica Sciatica laterality: sciatica of right side Qualified Code(s): M54.41 - Lumbago with sciatica, right side Condition: Good Disposition: HOME, SELF-CARE Instructions: Low Back Pain ([facility]) Additional Instructions: You were seen in the emergency department tonight with a escalating pain in your back and right hip. You are being discharged home with medication for pain and medication for nausea. You are given prescriptions for anti-inflammatory pain medications, muscle relaxant and a prednisone Dosepak. Please contact your doctors for a follow-up and management of your back pain. If the symptoms are worsening or if you have other concerns you may return to the emergency department for further evaluation treatment HOME CARE INSTRUCTIONS & INFORMATION: Thank you for choosing us for your medical needs. We hope you're satisfied with the care you received. After you leave, you must properly care for your problem and, at the same time, observe its progress. Any condition can change. Some illnesses can change rapidly over hours or days. If your condition worsens, return to the Emergency Department or see your physician promptly. ABOUT YOUR X-RAYS AND EKG'S: If you had an EKG or X-rays taken, they have been read by the Emergency Physician. The X-rays and EKG's will also be read by a Radiologist or Tire Setter within 24 hours. If discrepancies are noted, you will be notified by telephone. Please be certain the ED has a correct telephone number & address where you can be reached. Also, realize that some fractures or abnormalities do not show up on initial X-rays. If your symptoms continue, see your physician. ABOUT YOUR LABORATORY TEST: If you had laboratory tests, the results have been reviewed by the Emergency Physician. Some test results (for example cultures) may not be available for several days. You will be contacted if any test result shows you need additional treatment. Please be certain the ED has a correct telephone number and address where you can be reached. ABOUT YOUR MEDICATIONS: You will receive instructions on how to take your medicine on the prescription label you receive. Additional information may be provided by the Pharmacy. If you have questions afterwards, call the ED for clarification or further instructions. Some prescribed medications may cause drowsiness. Do not perform tasks such as driving a car or operating machinery without consulting your Pharmacist. If you feel you need a refill of pain medication, your condition will need re-evaluation. Please do not call for a refill of any medication. ABOUT YOUR SIGNATURE: Signature of this document acknowledges to followin. Understanding that you received emergency treatment and that you may be released before al medical problems are known or treated. Please be certain the ED has a correct phone number & address where you can be reached. 2. Acknowledgement that you will arrange for follow-up care as recommended. 3. Authorization for the Emergency Physician to provide information to your follow-up Physician in order to maximize your care. AT ANY TIME, IF YOUR SYMPTOMS CHANGE SIGNIFICANTLY OR WORSEN OR YOU DEVELOP NEW SYMPTOMS, RETURN TO THE EMERGENCY DEPARTMENT IMMEDIATELY FOR RE-EVALUATION. OUR GOAL IS TO PROVIDE EXCELLENT MEDICAL CARE! WE HOPE THAT WE HAVE MET YOUR EXPECTATIONS DURING YOUR EMERGENCY DEPARTMENT VISIT AND THAT YOU FEEL YOU HAVE RECEIVED EXCELLENT CARE! Prescriptions: Baclofen [Baclofen 10 mg Tablet] 10 mg PO TID #30 tab Prednisone [Deltasone 20 mg Tablet] 1 tab PO BID 5 Days #10 tablet Naproxen [Naprosyn] 500 mg PO BID #20 tablet Referrals: ADRIENNE CABALLERO MD [Primary Care Provider] - Follow up as needed
[2020-05-01] MEDS ORDERED: HYDROCODONE/ACETAMINOPHEN 5-325 MG (6 TAB/ER DISP) PO PRN (21:15)
[2020-05-01] MEDS ORDERED: ONDANSETRON ODT 4 MG TAB (6 TAB/ER DISP) PO PRN (21:15)
== END 2020-05-01 21:56 | disposition home or self-care (01) ==
LOC: ER 15:12
DX: M54.41 Lumbago with sciatica, right side (principal); M25.551 Pain in right hip; R26.2 Difficulty in walking, not elsewhere classified; Z88.8 Allergy status to other drugs, medicaments and biological substances; F17.200 Nicotine dependence, unspecified, uncomplicated; I10 Essential (primary) hypertension; J45.909 Unspecified asthma, uncomplicated
CPT/HCPCS: 99285; 96374; 96375; 36415; 85025; 80053; 81001; 73502; 72110; 72131; 73700; J1885; J1170; J2060; J1100

== ENCOUNTER 2020-07-24 12:41 | Emergency (ER) | payer OTHER ==
[2020-07-24] MEDS ORDERED: NORMAL SALINE 1000 ML 1,000 ML IV PRN (14:53)
--- NOTE | 2020-07-24 14:56 | ER Document Report ---
ED Medical Screen (RME) - General Chief Complaint: Cough Stated Complaint: COUGH,SORE THROAT,DIARRHEA Time Seen by Provider: 07/24/20 14:43 Primary Care Provider: ADRIENNE CABALLERO MD [Primary Care Provider] - Follow up as needed Mode of Arrival: Ambulatory Information source: Patient Notes: 40-year-old female presents to ED for cough cold congestion diarrhea and chest pain since a week ago Saturday. She went to the doctor on Saturday was tested positive for Covid. She states she is on antibiotics and steroids but states that nobody is doing anything for her. She states she is continuing to have diarrhea. I have ordered blood urine IV fluids stools chest x-ray flu and strep test and she will be seen by another provider. I have greeted and performed a rapid initial assessment of this patient. A comprehensive ED assessment and evaluation of the patient, analysis of test results and completion of medical decision making process will be conducted by a n additional ED providers. TRAVEL OUTSIDE OF THE [place] IN LAST 30 DAYS: No - Related Data Allergies/Adverse Reactions: aripiprazole [From Abilify] Allergy (Severe, Verified 07/24/20 13:08) Confusion Iodinated Contrast Media [IV Dye, Iodine Containing] Allergy (Severe, Verified 07/24/20 13:08) Difficulty breathing tramadol [Tramadol] Allergy (Severe, Verified 07/24/20 13:08) Hives amitriptyline Allergy (Intermediate, Verified 07/24/20 13:08) swelling Past Medical History - Social History Chew tobacco use (# tins/day): No Drug Abuse: None - Past Medical History Cardiac Medical History: Reports: Hx Hypertension Denies: Hx Coronary Artery Disease, Hx Heart Attack Pulmonary Medical History: Reports: Hx Asthma, Hx Sleep Apnea Denies: Hx Bronchitis, Hx COPD, Hx Pneumonia Neurological Medical History: Reports: Hx Seizures. Denies: Hx Cerebrovascular Accident Renal/ Medical History: Denies: Hx Peritoneal Dialysis Musculoskeltal Medical History: Denies Hx Arthritis, Reports Hx Fibromyalgia, Reports Hx Muscular Dystrophy Psychiatric Medical History: Reports: Hx Anxiety, Hx Depression Past Surgical History: Reports: Hx Cholecystectomy, Hx Hysterectomy, Hx Tonsillectomy - Immunizations Immunizations up to date: Yes Hx Diphtheria, Pertussis, Tetanus Vaccination: Yes Physical Exam - Vital signs Vitals: Temp Pulse Resp BP Pulse Ox 98.5 F 120 H 18 143/94 H 97 07/24/20 12:58 07/24/20 12:58 07/24/20 12:58 07/24/20 12:58 07/24/20 12:58 Course - Vital Signs Vital signs: Temp Pulse Resp BP Pulse Ox 98.5 F 120 H 18 143/94 H 97 07/24/20 12:58 07/24/20 12:58 07/24/20 12:58 07/24/20 12:58 07/24/20 12:58 Doctor's Discharge - Discharge Referrals: ADRIENNE CABALLERO MD [Primary Care Provider] - Follow up as needed
[2020-07-24 15:19] LABS: ABSOLUTE BASOPHILS # (AUTO) 0.1 10^3/uL (0.0-0.2); ABSOLUTE LYMPHOCYTES (AUTO) 1.2 10^3/uL (0.5-4.7); ABSOLUTE MONOCYTES (AUTO) 0.4 10^3/uL (0.1-1.4); ABSOLUTE NEUT (AUTO) 8.8 10^3/uL (1.7-8.2); BASOPHILS % (AUTO) 0.5 % (0-2); HEMOGLOBIN 14.7 g/dL (12.0-15.5); LYMPHOCYTES % (AUTO) 11.3 % (13-45); MEAN CORPUSCULAR HEMOGLOBIN 34.3 pg (27.0-33.4); MEAN CORPUSCULAR HGB CONC 35.9 g/dL (32.0-36.0); MEAN CORPUSCULAR VOLUME 96 fl (80-97); MONOCYTES % (AUTO) 3.8 % (3-13); PLATELET COUNT 202 10^3/uL (150-450); RED BLOOD COUNT 4.29 10^6/uL (3.72-5.28); RED CELL DISTRIBUTION WIDTH 12.4 % (11.5-14.0); SEGMENTED NEUTROPHILS % (AUTO) 84.4 % (42-78); TOTAL CELLS COUNTED % (AUTO) 100 %; WHITE BLOOD COUNT 10.5 10^3/uL (4.0-10.5)
--- NOTE | 2020-07-24 15:26 | RADIOLOGY REPORT (SQ) ---
EXAM DESCRIPTION: CHEST SINGLE VIEW IMAGES COMPLETED DATE/TIME: 07/24/2020 2:03 pm REASON FOR STUDY: covid positive cough sore throat COMPARISON: 04/08/2017 EXAM PARAMETERS: NUMBER OF VIEWS: One view. TECHNIQUE: Single frontal radiographic view of the chest acquired. RADIATION DOSE: NA LIMITATIONS: None. FINDINGS: LUNGS AND PLEURA: No opacities, masses or pneumothorax. No pleural effusion. MEDIASTINUM AND HILAR STRUCTURES: No masses. Contour normal. HEART AND VASCULAR STRUCTURES: Heart normal in size. Normal vasculature. BONES: No acute findings. HARDWARE: None in the chest. OTHER: No other significant finding. IMPRESSION: NO ACUTE RADIOGRAPHIC FINDING IN THE CHEST. TECHNICAL DOCUMENTATION: JOB ID: [id number] 2010 [employer]- All Rights Reserved Reading location - IP/workstation name: [email or web address]
[2020-07-24 15:37] LABS: ALBUMIN 3.9 g/dL (3.5-5.0); ALKALINE PHOSPHATASE 81 U/L (38-126); ANION GAP 5 (5-19); ASPARTATE AMINO TRANSFERASE 21 U/L (14-36); BILIRUBIN,DIRECT 0.3 mg/dL (0.0-0.4); BILIRUBIN,TOTAL 0.7 mg/dL (0.2-1.3); BLOOD UREA NITROGEN 12 mg/dL (7-20); CALCIUM 9.1 mg/dL (8.4-10.2); CARBON DIOXIDE 31 mmol/L (22-30); CHLORIDE 105 mmol/L (98-107); GLUCOSE 112 mg/dL (75-110); POTASSIUM 3.2 mmol/L (3.6-5.0); TOTAL PROTEIN 6.8 g/dL (6.3-8.2)
[2020-07-24] MEDS ORDERED: KETOROLAC TROMETHAMINE INJ/PF 30 MG/1 ML SDV IV ONE (15:57)
[2020-07-24] MEDS ORDERED: ALBUTEROL SULFATE 0.083% NEB 2.5 MG/3 ML AMPUL NEB ONE (15:58)
--- NOTE | 2020-07-24 16:01 | ER Document Report ---
ED General - General Chief Complaint: Cough Stated Complaint: COUGH,SORE THROAT,DIARRHEA Time Seen by Provider: 07/24/20 14:43 Primary Care Provider: ADRIENNE CABALLERO MD [Primary Care Provider] - Follow up as needed Mode of Arrival: Ambulatory Information source: Patient Notes: 40-year-old woman presents to the emergency department history of tested positive for coronavirus on Saturday. She comes in today with a complaint that she is having shortness of breath episodes along with tightness in her chest. She is a smoker, apparently started on antibiotics by her primary care doctor on Saturday this is third dose. She also is taking a steroid. Patient has a history of muscular dystrophy, complains of severe fatigue, weakness and respiratory difficulty. Her O2 sat is 97% on room air. TRAVEL OUTSIDE OF THE [place] IN LAST 30 DAYS: No - Related Data Allergies/Adverse Reactions: aripiprazole [From Abilify] Allergy (Severe, Verified 07/24/20 13:08) Confusion Iodinated Contrast Media [IV Dye, Iodine Containing] Allergy (Severe, Verified 07/24/20 13:08) Difficulty breathing tramadol [Tramadol] Allergy (Severe, Verified 07/24/20 13:08) Hives amitriptyline Allergy (Intermediate, Verified 07/24/20 13:08) swelling Past Medical History - General Information source: Patient - Social History Smoking Status: Unknown if Ever Smoked Chew tobacco use (# tins/day): No Drug Abuse: None Family History: Reviewed & Not Pertinent Patient has homicidal ideation: No - Past Medical History Cardiac Medical History: Reports: Hx Hypertension Denies: Hx Coronary Artery Disease, Hx Heart Attack Pulmonary Medical History: Reports: Hx Asthma, Hx Sleep Apnea Denies: Hx Bronchitis, Hx COPD, Hx Pneumonia Neurological Medical History: Reports: Hx Seizures. Denies: Hx Cerebrovascular Accident Renal/ Medical History: Denies: Hx Peritoneal Dialysis Musculoskeletal Medical History: Denies Hx Arthritis, Reports Hx Fibromyalgia, Reports Hx Muscular Dystrophy Psychiatric Medical History: Reports: Hx Anxiety, Hx Depression Past Surgical History: Reports: Hx Cholecystectomy, Hx Hysterectomy, Hx Tonsillectomy - Immunizations Immunizations up to date: Yes Hx Diphtheria, Pertussis, Tetanus Vaccination: Yes Review of Systems - Review of Systems Notes: Constitutional: + Fatigue HENT: Negative for sore throat. Eyes: Negative for visual changes. Cardiovascular: Negative for chest pain. Respiratory: +shortness of breath. Gastrointestinal: Negative for abdominal pain, vomiting or diarrhea. Genitourinary: Negative for dysuria. Musculoskeletal: Negative for back pain. Skin: Negative for rash. Neurological: + headaches, +weakness or numbness. 10 point ROS negative except as marked above and in HPI. Physical Exam - Vital signs Vitals: Temp Pulse Resp BP Pulse Ox 98.5 F 120 H 18 143/94 H 97 07/24/20 12:58 07/24/20 12:58 07/24/20 12:58 07/24/20 12:58 07/24/20 12:58 - Notes Notes: PHYSICAL EXAMINATION: Physical Exam: General: Alert responsive 40-year-old with generalized fatigue and weakness. HEENT: NC/AT, pupils equal round and reactive to light, MM moist,nares clear, oropharynx clear, airway patent Neck: supple, no adenopathy, no masses. Good range of motion Lungs: Coarse breath sounds, good air movement CVS: Regular rate and rhythm no murmur gallop or rub Abdomen: Soft, active, nontender, no masses, no hepatosplenomegaly Ext: No edema, clubbing or cyanosis. Neuro: Alert and responsive, moving all 4 extremities on command, cranial nerves intact, no focal findings Skin: Intact no open lesions, no rash PSYCH: Normal mood, normal affect. Course - Re-evaluation Re-evalutation: 07/24/20 19:37 Patient has coronavirus positive and presents to the emergency department stating that she is feeling bad with fatigue and shortness of breath. Her room air O2 sat is 97% her chest x-ray is clear. Patient was given a liter of normal saline and feels some improvement. She was also given albuterol nebulizer treatment with no change in her respiratory status. Apparently her primary care doctor has given her a course of antibiotics and a 3-day course of steroids at 40 mg prednisone daily. Patient states that she has completed that medication. She is also taking megadoses of vitamin D weekly. I have explained to patient that there is no clinical indication for hospitalization at this time and we will be discharging her home. I have encouraged her to also use vitamin C, zinc, and we will provide a prescription for Decadron 6 mg daily for 5 days. She is also encouraged to return to the hospital if she is having worsening symptoms or other concerns. - Vital Signs Vital signs: Temp Pulse Resp BP Pulse Ox 98.4 F 89 17 132/84 H 98 07/24/20 18:32 07/24/20 18:32 07/24/20 18:32 07/24/20 18:32 07/24/20 18:32 - Laboratory Result Diagrams: 07/24/20 15:07 07/24/20 15:07 Laboratory results interpreted by me: 07/24/20 07/24/20 15:07 15:07 MCH 34.3 H Lymph % (Auto) 11.3 L Absolute Neuts (auto) 8.8 H Seg Neutrophils % 84.4 H Potassium 3.2 L Carbon Dioxide 31 H Glucose 112 H 07/24/20 16:00 I have reviewed laboratory data and used this information for the treatment decisions regarding the patient. - Diagnostic Test Radiology reviewed: Image reviewed, Reports reviewed Radiology results interpreted by me: 07/24/20 16:00 Chest X-Ray 07/24/20 14:44 IMPRESSION: NO ACUTE RADIOGRAPHIC FINDING IN THE CHEST. Discharge - Discharge Clinical Impression: Coronavirus infection, Generalized weakness Fatigue Qualifiers: Fatigue type: unspecified Qualified Code(s): R53.83 - Other fatigue Condition: Good Disposition: HOME, SELF-CARE Additional Instructions: You were seen in the emergency department with symptoms related to the coronavirus infection. The evaluation reveals a normal oxygen level and a normal chest x-ray with no signs of pneumonia. Please continue to hydrate well. Continue to vitamin D. You may consider adding vitamin C 500 mg twice daily as well as zinc 50 mg daily to your regiment. You are also given a prescription for Zofran to control nausea and Decadron 6 mg daily for a 5-day. If your symptoms are worsening or if you have other concerns you may return to emergency department for further evaluation and treatment HOME CARE INSTRUCTIONS & INFORMATION: Thank you for choosing us for your medical needs. We hope you're satisfied with the care you received. After you leave, you must properly care for your problem and, at the same time, observe its progress. Any condition can change. Some illnesses can change rapidly over hours or days. If your condition worsens, return to the Emergency Department or see your physician promptly. ABOUT YOUR X-RAYS AND EKG'S: If you had an EKG or X-rays taken, they have been read by the Emergency Physician. The X-rays and EKG's will also be read by a Radiologist or Crystallography Teacher within 24 hours. If discrepancies are noted, you will be notified by telephone. Please be certain the ED has a correct telephone number & address where you can be reached. Also, realize that some fractures or abnormalities do not show up on initial X-rays. If your symptoms continue, see your physician. ABOUT YOUR LABORATORY TEST: If you had laboratory tests, the results have been reviewed by the Emergency Physician. Some test results (for example cultures) may not be available for several days. You will be contacted if any test result shows you need additional treatment. Please be certain the ED has a correct telephone number and address where you can be reached. ABOUT YOUR MEDICATIONS: You will receive instructions on how to take your medicine on the prescription label you receive. Additional information may be provided by the Pharmacy. If you have questions afterwards, call the ED for clarification or further instructions. Some prescribed medications may cause drowsiness. Do not perform tasks such as driving a car or operating machinery without consulting your Pharmacist. If you feel you need a refill of pain medication, your condition will need re-evaluation. Please do not call for a refill of any medication. ABOUT YOUR SIGNATURE: Signature of this document acknowledges to followin. Understanding that you received emergency treatment and that you may be released before al medical problems are known or treated. Please be certain the ED has a correct phone number & address where you can be reached. 2. Acknowledgement that you will arrange for follow-up care as recommended. 3. Authorization for the Emergency Physician to provide information to your follow-up Physician in order to maximize your care. AT ANY TIME, IF YOUR SYMPTOMS CHANGE SIGNIFICANTLY OR WORSEN OR YOU DEVELOP NEW SYMPTOMS, RETURN TO THE EMERGENCY DEPARTMENT IMMEDIATELY FOR RE-EVALUATION. OUR GOAL IS TO PROVIDE EXCELLENT MEDICAL CARE! WE HOPE THAT WE HAVE MET YOUR EXPECTATIONS DURING YOUR EMERGENCY DEPARTMENT VISIT AND THAT YOU FEEL YOU HAVE RECEIVED EXCELLENT CARE! Prescriptions: Dexamethasone [Decadron] 6 mg PO DAILY #5 tablet Ondansetron [Zofran Odt 4 mg Tablet] 1 - 2 tab PO Q4H PRN #15 tab.rapdis PRN Reason: For Nausea/Vomiting Referrals: ADRIENNE CABALLERO MD [Primary Care Provider] - Follow up as needed
[2020-07-24 18:45] LABS: A TYPE INFLUENZA AG NEGATIVE (NEGATIVE); B INFLUENZA AG NEGATIVE (NEGATIVE)
[2020-07-24 20:02] VITALS: BP 132/78
== END 2020-07-24 20:00 | disposition home or self-care (01) ==
LOC: ER 12:41
DX: U07.1 COVID-19 (principal); J02.9 Acute pharyngitis, unspecified; R53.83 Other fatigue; R05 Cough; R19.7 Diarrhea, unspecified; I10 Essential (primary) hypertension; Z90.49 Acquired absence of other specified parts of digestive tract; Z90.710 Acquired absence of both cervix and uterus
CPT/HCPCS: 94640; 99284; 96361; 96374; 36415; 87070; 87880; 83690; 84703; 85025; 80053; 87804; 71045; J1885; J7030; J7613

== ENCOUNTER 2020-07-25 11:48 | Emergency (ER) | payer OTHER ==
--- NOTE | 2020-07-25 14:53 | RADIOLOGY REPORT (SQ) ---
EXAM DESCRIPTION: CHEST SINGLE VIEW IMAGES COMPLETED DATE/TIME: 07/25/2020 2:45 pm REASON FOR STUDY: dyspnea, COVID-19 infection COMPARISON: 07/24/2020 EXAM PARAMETERS: NUMBER OF VIEWS: One view. TECHNIQUE: Single frontal radiographic view of the chest acquired. RADIATION DOSE: NA LIMITATIONS: Low lung volumes. FINDINGS: LUNGS AND PLEURA: No opacities, masses or pneumothorax. No pleural effusion. MEDIASTINUM AND HILAR STRUCTURES: No masses. Contour normal. HEART AND VASCULAR STRUCTURES: Heart normal in size. Normal vasculature. BONES: No acute findings. HARDWARE: None in the chest. OTHER: No other significant finding. IMPRESSION: Negative chest allowing for low lung volumes. TECHNICAL DOCUMENTATION: JOB ID: [id number] 2010 [employer]- All Rights Reserved Reading location - IP/workstation name: [email or web address]
[2020-07-25] MEDS ORDERED: DEXAMETHASONE SOD PHOSPHATE INJ 4 MG/1 ML VIAL IV ONE (15:20)
[2020-07-25 16:06] LABS: ABSOLUTE BASOPHILS # (AUTO) 0.1 10^3/uL (0.0-0.2); ABSOLUTE LYMPHOCYTES (AUTO) 2.8 10^3/uL (0.5-4.7); ABSOLUTE MONOCYTES (AUTO) 0.5 10^3/uL (0.1-1.4); ABSOLUTE NEUT (AUTO) 4.4 10^3/uL (1.7-8.2); EOSINOPHILS % (AUTO) 0.4 % (0-6); HEMATOCRIT 35.8 % (36.0-47.0); HEMOGLOBIN 12.7 g/dL (12.0-15.5); LYMPHOCYTES % (AUTO) 36.3 % (13-45); MEAN CORPUSCULAR HEMOGLOBIN 34.4 pg (27.0-33.4); MEAN CORPUSCULAR HGB CONC 35.6 g/dL (32.0-36.0); MEAN CORPUSCULAR VOLUME 97 fl (80-97); MONOCYTES % (AUTO) 5.8 % (3-13); PLATELET COUNT 143 10^3/uL (150-450); RED BLOOD COUNT 3.71 10^6/uL (3.72-5.28); RED CELL DISTRIBUTION WIDTH 12.4 % (11.5-14.0); SEGMENTED NEUTROPHILS % (AUTO) 56.5 % (42-78); TOTAL CELLS COUNTED % (AUTO) 100 %; WHITE BLOOD COUNT 7.8 10^3/uL (4.0-10.5)
--- NOTE | 2020-07-25 16:12 | ER Document Report ---
ED General - General TRAVEL OUTSIDE OF THE [place] IN LAST 30 DAYS: No <CHRISTOPHERHARPERPJ - Last Filed: 07/25/20 16:24> - General Mode of Arrival: Ambulatory Information source: Patient <FELA RAMÍREZ - Last Filed: 07/25/20 20:44> - General Chief Complaint: Shortness Of Breath Stated Complaint: SHORTNESS OF BREATH Time Seen by Provider: 07/25/20 14:19 Primary Care Provider: ADRIENNE CABALLERO MD [Primary Care Provider] - Follow up as needed - HPI Notes: Patient is a 40-year-old female who presents to the emergency department for evaluation. She has a diagnosis of COVID-19. She was diagnosed over the weekend, was seen yesterday. She states today she just feels weak, she feels like she has no voice, and thought she should be reevaluated. She has not yet filled the prescriptions that were given to her yesterday. She states she just feels weak and like she cannot speak. She does feel short of breath. She did have fevers and chills, nausea and vomiting, diarrhea, but they have all resolved. (PJ OZUNA) - Related Data Allergies/Adverse Reactions: aripiprazole [From Abilify] Allergy (Severe, Verified 07/25/20 12:44) Confusion Iodinated Contrast Media [IV Dye, Iodine Containing] Allergy (Severe, Verified 07/25/20 12:44) Difficulty breathing tramadol [Tramadol] Allergy (Severe, Verified 07/25/20 12:44) Hives amitriptyline Allergy (Intermediate, Verified 07/25/20 12:44) swelling Past Medical History - General Information source: Patient - Social History Smoking Status: Current Some Day Smoker Family History: Reviewed & Not Pertinent Patient has homicidal ideation: No - Past Medical History Cardiac Medical History: Reports: Hx Hypertension Denies: Hx Coronary Artery Disease, Hx Heart Attack Pulmonary Medical History: Reports: Hx Asthma, Hx Sleep Apnea Denies: Hx Bronchitis, Hx COPD, Hx Pneumonia Neurological Medical History: Reports: Hx Seizures. Denies: Hx Cerebrovascular Accident Renal/ Medical History: Denies: Hx Peritoneal Dialysis Musculoskeletal Medical History: Denies Hx Arthritis, Reports Hx Fibromyalgia, Reports Hx Muscular Dystrophy Psychiatric Medical History: Reports: Hx Anxiety, Hx Depression Past Surgical History: Reports: Hx Cholecystectomy, Hx Hysterectomy, Hx Tonsillectomy - Immunizations Immunizations up to date: Yes Hx Diphtheria, Pertussis, Tetanus Vaccination: Yes <PJ OZUNA - Last Filed: 07/25/20 16:24> Review of Systems - Review of Systems Constitutional: See HPI EENT: See HPI Cardiovascular: No symptoms reported Respiratory: See HPI Gastrointestinal: See HPI Genitourinary: No symptoms reported Musculoskeletal: No symptoms reported Skin: No symptoms reported Neurological/Psychological: No symptoms reported <PJ OZUNA - Last Filed: 07/25/20 16:24> Physical Exam - Vital signs Vitals: Temp Pulse Resp BP Pulse Ox 98.1 F 99 18 149/110 H 97 07/25/20 11:51 07/25/20 11:51 07/25/20 11:51 07/25/20 11:51 07/25/20 11:51 Course - Laboratory Result Diagrams: 07/25/20 15:50 07/25/20 15:50 <PJ OZUNA - Last Filed: 07/25/20 16:24> - Laboratory Result Diagrams: 07/25/20 15:50 07/25/20 15:50 - Diagnostic Test Radiology reviewed: Image reviewed, Reports reviewed <FELA RAMÍREZ - Last Filed: 07/25/20 20:44> - Re-evaluation Re-evalutation: 07/25/20 16:27 Patient presents emergency department for evaluation. She is recently diagnosed with COVID-19, she states she feels worse. Her vital signs are unremarkable. Laboratory investigations were drawn here. Her potassium was found to be 2.7. I did order replacement oral potassium as well as magnesium level. The magnesium level is been called into the lab. At this point she does not have pneumonia. She is not hypoxic. My suspicion is that the patient will have her electrolytes replaced and have her discharged home. She is encouraged to follow-up with her Decadron prescription and fill it as previously written. Otherwise she should follow-up with her primary care provider. This is the patient's remainder expected ED course, please see note from Dr. Ramírez in reg ards to any possible changes. (PJ OZUNA) 07/25/20 18:36 Patient magnesium level was found to be normal, she states that she is ready to go home and realizes that there is no criteria for admission to the hospital. She is given a 7-day course of potassium supplement as well as encouragement to get the prescriptions filled from her first ER visit. (FELA RAMÍREZ) - Vital Signs Vital signs: Temp Pulse Resp BP Pulse Ox 98.7 F 80 20 137/92 H 98 07/25/20 17:53 07/25/20 17:53 07/25/20 17:53 07/25/20 17:53 07/25/20 17:53 - Laboratory Laboratory results interpreted by me: 07/25/20 07/25/20 15:50 15:50 RBC 3.71 L Hct 35.8 L MCH 34.4 H Plt Count 143 L Potassium 2.7 L* Carbon Dioxide 33 H Anion Gap 2 L Total Protein 6.2 L 07/25/20 20:43 I have reviewed laboratory data and used this information for the treatment decisions regarding the patient. (FELA RAMÍREZ) - Diagnostic Test Radiology results interpreted by me: 07/25/20 20:43 Chest X-Ray 07/25/20 14:23 IMPRESSION: Negative chest allowing for low lung volumes. (FELA RAMÍREZ) Discharge <PJ OZUNA - Last Filed: 07/25/20 16:24> <FELA RAMÍREZ - Last Filed: 07/25/20 20:44> - Discharge Clinical Impression: Coronavirus infection, Hypokalemia Condition: Stable Disposition: HOME, SELF-CARE Instructions: COVID-19 Guidance for Persons Under Investigation, Hypokalemia ([facility]) Additional Instructions: You were seen in the emergency department with symptoms related to the coronavirus infection. Please get the prescriptions filled that you were given in the emergency department yesterday. Follow-up with your primary care doctor as needed. If your symptoms are worsening with increasing shortness of breath, or other concerns you may return to the emergency department for further evaluation and treatment HOME CARE INSTRUCTIONS & INFORMATION: Thank you for choosing us for your medical needs. We hope you're satisfied with the care you received. After you leave, you must properly care for your problem and, at the same time, observe its progress. Any condition can change. Some illnesses can change rapidly over hours or days. If your condition worsens, return to the Emergency Department or see your physician promptly. ABOUT YOUR X-RAYS AND EKG'S: If you had an EKG or X-rays taken, they have been read by the Emergency Physician. The X-rays and EKG's will also be read by a Radiologist or Furniture Rental Consultant within 24 hours. If discrepancies are noted, you will be notified by telephone. Please be certain the ED has a correct telephone number & address where you can be reached. Also, realize that some fractures or abnormalities do not show up on initial X-rays. If your symptoms continue, see your physician. ABOUT YOUR LABORATORY TEST: If you had laboratory tests, the results have been reviewed by the Emergency Physician. Some test results (for example cultures) may not be available for several days. You will be contacted if any test result shows you need additional treatment. Please be certain the ED has a correct telephone number and address where you can be reached. ABOUT YOUR MEDICATIONS: You will receive instructions on how to take your medicine on the prescription label you receive. Additional information may be provided by the Pharmacy. If you have questions afterwards, call the ED for clarification or further instructions. Some prescribed medications may cause drowsiness. Do not perform tasks such as driving a car or operating machinery without consulting your Pharmacist. If you feel you need a refill of pain medication, your condition will need re-evaluation. Please do not call for a refill of any medication. ABOUT YOUR SIGNATURE: Signature of this document acknowledges to followin. Understanding that you received emergency treatment and that you may be released before al medical problems are known or treated. Please be certain the ED has a correct phone number & address where you can be reached. 2. Acknowledgement that you will arrange for follow-up care as recommended. 3. Authorization for the Emergency Physician to provide information to your follow-up Physician in order to maximize your care. AT ANY TIME, IF YOUR SYMPTOMS CHANGE SIGNIFICANTLY OR WORSEN OR YOU DEVELOP NEW SYMPTOMS, RETURN TO THE EMERGENCY DEPARTMENT IMMEDIATELY FOR RE-EVALUATION. OUR GOAL IS TO PROVIDE EXCELLENT MEDICAL CARE! WE HOPE THAT WE HAVE MET YOUR EXPECTATIONS DURING YOUR EMERGENCY DEPARTMENT VISIT AND THAT YOU FEEL YOU HAVE RECEIVED EXCELLENT CARE! Prescriptions: Potassium Chloride [K-Tab ER] 20 meq PO DAILY #7 tablet.er Referrals: ADRIENNE CABALLERO MD [Primary Care Provider] - Follow up as needed
[2020-07-25 16:24] LABS: ALBUMIN 3.5 g/dL (3.5-5.0); ALKALINE PHOSPHATASE 76 U/L (38-126); ASPARTATE AMINO TRANSFERASE 24 U/L (14-36); BILIRUBIN,DIRECT 0.2 mg/dL (0.0-0.4); BILIRUBIN,TOTAL 0.5 mg/dL (0.2-1.3); BLOOD UREA NITROGEN 10 mg/dL (7-20); CALCIUM 8.8 mg/dL (8.4-10.2); CARBON DIOXIDE 33 mmol/L (22-30); CHLORIDE 105 mmol/L (98-107); GLUCOSE 87 mg/dL (75-110); TOTAL PROTEIN 6.2 g/dL (6.3-8.2)
[2020-07-25 16:26] LABS: ANION GAP 2 (5-19); POTASSIUM 2.7 mmol/L (3.6-5.0)
[2020-07-25] MEDS ORDERED: POTASSIUM CHLORIDE 10 MEQ TABLET.ER PO ONE (16:26)
[2020-07-25 17:54] VITALS: BP 137/92
== END 2020-07-25 19:00 | disposition home or self-care (01) ==
LOC: ER 11:48
DX: U07.1 COVID-19 (principal); E87.6 Hypokalemia; R06.02 Shortness of breath; I10 Essential (primary) hypertension; F17.200 Nicotine dependence, unspecified, uncomplicated
CPT/HCPCS: 99284; 96374; 36415; 83735; 85025; 80053; 71045; J1100

== ENCOUNTER 2020-08-15 08:03 | Day surgery (SDC) | payer OTHER ==
[2020-08-15 08:35] LABS: HEMATOCRIT 35.8 % (36.0-47.0); HEMOGLOBIN 12.9 g/dL (12.0-15.5); MEAN CORPUSCULAR HEMOGLOBIN 34.3 pg (27.0-33.4); MEAN CORPUSCULAR VOLUME 95 fl (80-97); PLATELET COUNT 176 10^3/uL (150-450); RED BLOOD COUNT 3.76 10^6/uL (3.72-5.28); RED CELL DISTRIBUTION WIDTH 12.4 % (11.5-14.0); WHITE BLOOD COUNT 5.6 10^3/uL (4.0-10.5)
[2020-08-15 08:47] LABS: INTERNATIONAL RATION (INR) 0.92; PROTHROMBIN TIME 12.5 SEC (11.4-15.4)
[2020-08-15 08:48] LABS: PARTIAL THROMBOPLASTIN TIME 24.1 SEC (23.5-35.8)
[2020-08-15 09:05] LABS: BLOOD UREA NITROGEN 9 mg/dL (7-20)
--- NOTE | 2020-08-15 10:48 | RADIOLOGY REPORT (SQ) ---
EXAM DESCRIPTION: LUMBAR PUNCTURE IMAGES COMPLETED DATE/TIME: 08/15/2020 10:09 am REASON FOR STUDY: BENIGN INTRACRANIAL HYPERTENSION, Chiari malformation COMPARISON: None. FLUOROSCOPY TIME: FT: 21 seconds. 1 Image saved to PACS. TECHNIQUE: Integrated into the Procedure. LIMITATIONS: None. PROCEDURE: After written consent and assessment were obtained, the patient was brought into the fluo roscopy room and placed prone on the table. The patient's lower back was prepped in a sterile fashion and an entry site was selected under live fluoroscopic guidance. The entry site was anesthetized wit h 1% lidocaine. A 20 gauge needle was advanced through the skin and into the thecal sac at the level of L 3 -L 4 . An opening pressure of 22 units was obtained. After approximately 6 ml of CSF was drain ed the needle was removed and a sterile bandage was placed of the site. Specimens were sent to the la b for testing. A fluoroscopic spot image was saved to PACS confirming level access. FINDINGS: Clear CSF. IMPRESSION: Lumbar puncture under fluoroscopy. No immediate complication. COMMENT: Patient medication list reviewed: Yes- Quality ID# [id number]:Eligible professional attests to doc umenting in the medical record they obtained, updated, or reviewed the patient's current medications. Quality ID [id number]: Final reports for procedures using fluoroscopy that document radiation exposure indic es, or exposure time and number of fluorographic images (if radiation exposure indices are not availa ble) TECHNICAL DOCUMENTATION: Job ID: [id number] 2010 [employer]- All Rights Reserved Reading location - IP/workstation name: [email or web address] [id number]
[2020-08-15 11:07] LABS: APPEARANCE ALL TUBES CLEAR; COLOR ALL TUBES COLORLESS; CSF TUBE NUMBER 3
[2020-08-15 11:08] LABS: VOLUME TUBE 1 1.5 CC; VOLUME TUBE 2 1.5 CC
[2020-08-15 11:22] LABS: GLUCOSE,CSF 60 mg/dL (40-70); PROTEIN,CSF 46 mg/dL (12-60)
[2020-08-15 11:27] LABS: RED BLOOD CELL,CSF 28 /uL (0-10)
[2020-08-15 11:28] LABS: WHITE BLOOD CELL,CSF 1 /uL (0-5)
[2020-08-15 12:20] VITALS: BP 126/78
[2020-08-16 13:37] LABS: ALBUMIN SERUM 3.6 g/dL (3.8-4.8); CSF IGG INDEX 0.7 (0.0-0.7); IGG SYNTHESIS RATE CSF 2.5 mg/day (-9.9 TO +3); IGG/ALBUMIN RATIO CSF 0.18 (0.00-0.25); IMMUNOGLOBULIN G CSF 3.5 mg/dL (0.0-8.6)
== END 2020-08-15 12:10 | disposition home or self-care (01) ==
LOC: RAD 08:03
PROVIDERS: ATTEND Specialist
DX: G93.2 Benign intracranial hypertension (principal)
CPT/HCPCS: 36415; 62328; 82565; 82784; 82945; 84157; 84520; 85027; 85610; 85730; 87070; 87205; 89050

== ENCOUNTER 2020-08-25 14:59 | Inpatient (IN) | payer OTHER ==
--- NOTE | 2020-08-25 15:26 | ER Document Report ---
ED Medical Screen (RME) - General Chief Complaint: Leg Swelling Stated Complaint: SHORT OF BREATH,LEG SWELLING Time Seen by Provider: 08/25/20 15:14 Primary Care Provider: ADRIENNE CABALLERO MD [Primary Care Provider] - Follow up as needed Notes: Patient presents complaining of left lower extremity swelling for the past week. Patient does report shortness of breath for the past week as well. Patient states she has had a 7 pound weight gain over the past month. Patient reports increased heart rate. Patient was positive for Covid in June and states that she did get over her symptoms. Patient has a history of anxiety, depression, Chiari malformation, intracranial hypertension. I have greeted and performed a rapid initial assessment of this patient. A comprehensive ED assessment and evaluation of the patient, analysis of test results and completion of the medical decision making process will be conducted by additional ED providers. TRAVEL OUTSIDE OF THE [place] IN LAST 30 DAYS: No - Related Data Allergies/Adverse Reactions: aripiprazole [From Abilify] Allergy (Severe, Verified 08/15/20 08:21) Confusion Iodinated Contrast Media [IV Dye, Iodine Containing] Allergy (Severe, Verified 08/15/20 08:21) Difficulty breathing tramadol [Tramadol] Allergy (Severe, Verified 08/15/20 08:21) Hives amitriptyline Allergy (Intermediate, Verified 08/15/20 08:21) swelling Past Medical History - Social History Chew tobacco use (# tins/day): No Frequency of alcohol use: None Drug Abuse: None - Past Medical History Cardiac Medical History: Reports: Hx Hypertension Denies: Hx Coronary Artery Disease, Hx Heart Attack Pulmonary Medical History: Reports: Hx Asthma, Hx Sleep Apnea Denies: Hx Bronchitis, Hx COPD, Hx Pneumonia Neurological Medical History: Denies: Hx Cerebrovascular Accident, Hx Seizures Renal/ Medical History: Denies: Hx Peritoneal Dialysis Musculoskeltal Medical History: Denies Hx Arthritis, Reports Hx Fibromyalgia, Reports Hx Muscular Dystrophy Psychiatric Medical History: Reports: Hx Anxiety, Hx Depression Past Surgical History: Reports: Hx Cholecystectomy, Hx Hysterectomy, Hx Tonsillectomy - Immunizations Immunizations up to date: Yes Hx Diphtheria, Pertussis, Tetanus Vaccination: Yes Physical Exam - Vital signs Vitals: Temp Pulse Resp BP Pulse Ox 98.8 F 125 H 18 133/95 H 98 08/25/20 15:13 08/25/20 15:13 08/25/20 15:13 08/25/20 15:13 08/25/20 15:13 - General General appearance: Appears well, Alert - Cardiovascular Rhythm: Tachycardia Pulses: Normal: Dorsalis pedis Course - Vital Signs Vital signs: Temp Pulse Resp BP Pulse Ox 98.8 F 125 H 18 133/95 H 98 08/25/20 15:13 08/25/20 15:13 08/25/20 15:13 08/25/20 15:13 08/25/20 15:13 Doctor's Discharge - Discharge Referrals: ADRIENNE CABALLERO MD [Primary Care Provider] - Follow up as needed
--- NOTE | 2020-08-25 15:40 | EKG REPORT ---
SEVERITY:- OTHERWISE NORMAL ECG - SINUS TACHYCARDIA : Confirmed by: Tacos Smart MD 25-Aug-2020 15:39:05
[2020-08-25 15:48] LABS: ABSOLUTE BASOPHILS # (AUTO) 0.1 10^3/uL (0.0-0.2); ABSOLUTE EOSINOPHILS # (AUTO) 0.2 10^3/uL (0.0-0.6); ABSOLUTE LYMPHOCYTES (AUTO) 2.4 10^3/uL (0.5-4.7); ABSOLUTE MONOCYTES (AUTO) 0.5 10^3/uL (0.1-1.4); ABSOLUTE NEUT (AUTO) 3.5 10^3/uL (1.7-8.2); BASOPHILS % (AUTO) 1.2 % (0-2); EOSINOPHILS % (AUTO) 2.7 % (0-6); HEMATOCRIT 41.1 % (36.0-47.0); HEMOGLOBIN 14.5 g/dL (12.0-15.5); LYMPHOCYTES % (AUTO) 36.5 % (13-45); MEAN CORPUSCULAR HEMOGLOBIN 33.3 pg (27.0-33.4); MEAN CORPUSCULAR HGB CONC 35.2 g/dL (32.0-36.0); MEAN CORPUSCULAR VOLUME 94 fl (80-97); MONOCYTES % (AUTO) 6.9 % (3-13); PLATELET COUNT 246 10^3/uL (150-450); RED BLOOD COUNT 4.35 10^6/uL (3.72-5.28); RED CELL DISTRIBUTION WIDTH 12.5 % (11.5-14.0); SEGMENTED NEUTROPHILS % (AUTO) 52.7 % (42-78); TOTAL CELLS COUNTED % (AUTO) 100 %; WHITE BLOOD COUNT 6.6 10^3/uL (4.0-10.5)
--- NOTE | 2020-08-25 16:03 | RADIOLOGY REPORT (SQ) ---
EXAM DESCRIPTION: CHEST SINGLE VIEW IMAGES COMPLETED DATE/TIME: 08/25/2020 3:53 pm REASON FOR STUDY: sob COMPARISON: 07/25/2020 NUMBER OF VIEWS: One view. TECHNIQUE: Single frontal radiographic view of the chest acquired. LIMITATIONS: None. FINDINGS: LUNGS AND PLEURA: No opacities, masses or pneumothorax. No pleural effusion. MEDIASTINUM AND HILAR STRUCTURES: No masses. Contour normal. HEART AND VASCULAR STRUCTURES: Heart normal in size. Normal vasculature. BONES: No acute findings. HARDWARE: None in the chest. OTHER: No other significant finding. IMPRESSION: NO SIGNIFICANT RADIOGRAPHIC FINDING IN THE CHEST. TECHNICAL DOCUMENTATION: JOB ID: [id number] 2010 [employer]- All Rights Reserved Reading location - IP/workstation name: [email or web address]
[2020-08-25 16:06] LABS: ALBUMIN 3.9 g/dL (3.5-5.0); ALKALINE PHOSPHATASE 89 U/L (38-126); ASPARTATE AMINO TRANSFERASE 35 U/L (14-36); BILIRUBIN,DIRECT 0.1 mg/dL (0.0-0.4); BILIRUBIN,TOTAL 0.4 mg/dL (0.2-1.3); BLOOD UREA NITROGEN 9 mg/dL (7-20); CALCIUM 9.1 mg/dL (8.4-10.2); CARBON DIOXIDE 34 mmol/L (22-30); CHLORIDE 102 mmol/L (98-107); GLUCOSE 91 mg/dL (75-110); POTASSIUM 3.6 mmol/L (3.6-5.0); TOTAL PROTEIN 7.1 g/dL (6.3-8.2)
[2020-08-25 16:07] LABS: ANION GAP 4 (5-19)
[2020-08-25 16:18] LABS: NT PRO BNP 36 pg/mL (<125); TROPONIN I < 0.012 ng/mL
[2020-08-25 17:18] LABS: INTERNATIONAL RATION (INR) 0.91; PROTHROMBIN TIME 12.5 SEC (11.4-15.4)
[2020-08-25 17:19] LABS: PARTIAL THROMBOPLASTIN TIME 28.8 SEC (23.5-35.8)
--- NOTE | 2020-08-25 17:35 | RADIOLOGY REPORT (SQ) ---
EXAM DESCRIPTION: VENOUS UNILATERAL LOWER IMAGES COMPLETED DATE/TIME: 08/25/2020 5:22 pm REASON FOR STUDY: LLE pain, swelling COMPARISON: None. TECHNIQUE: Dynamic and static cain scale and color images acquired of the left leg venous system. Se lected spectral images acquired with additional compression and augmentation maneuvers. The contralat eral common femoral vein and saphenofemoral junction were also imaged. Images stored on PACS. LIMITATIONS: None. FINDINGS: COMMON FEMORAL: Normal phasicity, compression and augmentation. No visualized echogenic ma terial on cain scale. No defects on color images. FEMORAL: Normal compression and augmentation. No visualized echogenic material on cain scale. No defe cts on color images. POPLITEAL: Acute thrombus in the distal popliteal vein CALF VESSELS: Acute thrombus in 1 of the posterior tibial veins. GSV and SSV: Normal compression, augmentation. No visualized echogenic material on cain scale. No def ects on color images. ANY DEEP VENOUS INSUFFICIENCY: Not evaluated. ANY EVIDENCE OF POPLITEAL CYST: No. OTHER: No other significant finding. CONTRALATERAL COMMON FEMORAL VEIN AND SAPHENOFEMORAL JUNCTION: Normal phasicity, compression and augmentation. No visualized echogenic material on cain scale. No de fects on color images. IMPRESSION: Acute DVT. TECHNICAL DOCUMENTATION: JOB ID: [id number] 2010 [employer]- All Rights Reserved Reading location - IP/workstation name: [email or web address]
[2020-08-25] MEDS ORDERED: METHYLPREDNISOLONE INJ 125 MG/2 ML SDV IV ONE (18:44)
[2020-08-25] MEDS ORDERED: FAMOTIDINE INJ/PF 20 MG/2 ML SDV IV ONE (18:44)
[2020-08-25] MEDS ORDERED: DIPHENHYDRAMINE HCL 50 MG/ML VIAL IV ONE (18:45)
--- NOTE | 2020-08-25 19:15 | ER Document Report ---
ED General - General TRAVEL OUTSIDE OF THE [place] IN LAST 30 DAYS: No - Related Data Home Medications: Lasix, Relafen, sucralfate, potassium, omeprazole, Neurontin, rizatriptan, venlafaxine, trazodone, temazepam <PJ OZUNA - Last Filed: 08/25/20 19:54> <STEVENVINCENT - Last Filed: 08/25/20 22:30> - General Chief Complaint: Leg Swelling Stated Complaint: SHORT OF BREATH,LEG SWELLING Time Seen by Provider: 08/25/20 15:14 Primary Care Provider: ADRIENNE CABALLERO MD [Primary Care Provider] - Follow up as needed - [facility] Notes: Patient is a 40-year-old female presents emergency department for evaluation of left leg pain and shortness of breath. She is noted swelling as well. Her symptoms have been going on "somewhere between 1 and 2 weeks." She has had no fevers or chills. She has shortness of breath but no coughing. She was diagnosed with Covid back in June but all of her symptoms for that have resolved. She has had no nausea or vomiting. She is eating and drinking normally. Normal bowel movements. She has pain in the back of her left leg and has noted edema over both legs over the last 2 weeks as well. She denies any paroxysmal nocturnal dyspnea. (PJ OZUNA) - Related Data Allergies/Adverse Reactions: aripiprazole [From Abilify] Allergy (Severe, Verified 08/15/20 08:21) Confusion Iodinated Contrast Media [IV Dye, Iodine Containing] Allergy (Severe, Verified 08/15/20 08:21) Difficulty breathing tramadol [Tramadol] Allergy (Severe, Verified 08/15/20 08:21) Hives amitriptyline Allergy (Intermediate, Verified 08/15/20 08:21) swelling Past Medical History - General Information source: Patient - Social History Smoking Status: Current Every Day Smoker Chew tobacco use (# tins/day): No Frequency of alcohol use: None Drug Abuse: None Family History: Reviewed & Not Pertinent - Past Medical History Cardiac Medical History: Reports: Hx Hypertension, Other - "Hole in her heart" she is unsure as to whether an ASD or VSD Denies: Hx Coronary Artery Disease, Hx Heart Attack Pulmonary Medical History: Reports: Hx Asthma, Hx Sleep Apnea Denies: Hx Bronchitis, Hx COPD, Hx Pneumonia Neurological Medical History: Reports: Other - Chiari malformation with resultant intracranial hypertension. Denies: Hx Cerebrovascular Accident, Hx Seizures Renal/ Medical History: Denies: Hx Peritoneal Dialysis Musculoskeletal Medical History: Denies Hx Arthritis, Reports Hx Fibromyalgia, Reports Hx Muscular Dystrophy - Plhwyxs-Kusjy-Aizse Psychiatric Medical History: Reports: Hx Anxiety, Hx Depression Past Surgical History: Reports: Hx Cholecystectomy, Hx Hysterectomy, Hx Tonsillectomy - Immunizations Immunizations up to date: Yes Hx Diphtheria, Pertussis, Tetanus Vaccination: Yes <PJ OZUNA - Last Filed: 08/25/20 19:54> Review of Systems - Review of Systems Constitutional: No symptoms reported EENT: No symptoms reported Cardiovascular: No symptoms reported Respiratory: See HPI Gastrointestinal: No symptoms reported Genitourinary: No symptoms reported Musculoskeletal: See HPI Skin: No symptoms reported Neurological/Psychological: No symptoms reported <PJ OZUNA - Last Filed: 08/25/20 19:54> Physical Exam <PJ OZUNA - Last Filed: 08/25/20 19:54> - Vital signs Vitals: Temp Pulse Resp BP Pulse Ox 98.8 F 125 H 18 133/95 H 98 08/25/20 15:13 08/25/20 15:13 08/25/20 15:13 08/25/20 15:13 08/25/20 15:13 - Notes Notes: Vital signs reviewed, please refer to chart. Head is normocephalic, atraumatic. Pupils equal round, reactive to light. Neck is supple without meningismus. Heart is regular rate and rhythm. Lungs are clear to auscultation bilaterally. Abdomen is soft, nontender, normoactive bowel sounds throughout. Extremities without cyanosis, clubbing. She has pretibial edema noted to bilateral lower extremities, left greater than right. Positive posterior left calf tenderness, no right-sided tenderness. Peripheral pulses are equal. Skin is warm and dry. Patient is awake, alert, neurological exam is nonfocal. (PJ OZUNA) Course - Laboratory Results Result Diagrams: 08/25/20 15:25 08/25/20 15:25 Critical Laboratory Results Reviewed: No Critical Results - Radiology Results Critical Radiology Results Reviewed: Yes <PJ OZUNA - Last Filed: 08/25/20 19:54> - Laboratory Results Result Diagrams: 08/25/20 15:25 08/25/20 15:25 Critical Laboratory Results Reviewed: No Critical Results - Radiology Results Critical Radiology Results Reviewed: Yes Attending or Supervising Physician who Reviewed Radiology: VINCENT HARRIS <VINCENT HARRIS - Last Filed: 08/25/20 22:30> - Re-evaluation Re-evalutation: 08/25/20 19:21 Patient presents emergency department for evaluation. She was initially seen through triage. She has shortness of breath and leg swelling/pain. She is found to have a DVT. Weight has now been documented, I will treat with Lovenox. She uses her laboratory vesication's are largely unremarkable. Awaiting CT angiogram. The patient has had swelling in the past with IV dye, but states that pretreatment has precluded any sort of reaction. This is ordered, awaiting CTA. We will continue to monitor. 08/25/20 19:56 Patient has been ordered a 105 mg dose of Lovenox. Still awaiting CTA. The patient has been consistently tachycardic. She has not yet had a CT angiogram performed. I highly suspect this patient will have a significant PE in addition to the DVT. She did have a lumbar puncture on the , which is not a contraindication to the blood thinner, but I do believe deserves close observation. Care of this patient will be turned over to the next ED physician, Dr. Harris, please see her note for the remainder of this patient's ED course and disposition. (PJ OZUNA) 08/25/20 22:28 CTA is positive for bilateral PEs. I went in to update patient. Her heart rate is hovering 98-105 while at rest. Patient states that if she gets up and tries to ambulate she will become short of breath. Patient was discussed for admission to the hospital service. (VINCENT HARRIS) - Vital Signs Vital signs: Temp Pulse Resp BP Pulse Ox 98.4 F 125 H 18 121/81 98 08/25/20 20:16 08/25/20 15:13 08/25/20 15:13 08/25/20 18:08 08/25/20 18:08 - Laboratory Results Laboratory Results Interpreted: 12/31/20 15:25 Carbon Dioxide 34 H Anion Gap 4 L - Radiology Results Radiology Results Interpreted: 08/25/20 20:00 Chest X-Ray 08/25/20 15:21 IMPRESSION: NO SIGNIFICANT RADIOGRAPHIC FINDING IN THE CHEST. Venous Doppler Study 08/25/20 15:22 IMPRESSION: Acute DVT. (PJ OZUNA) Discharge <PJ OZUNA - Last Filed: 08/25/20 19:54> - Discharge Admitting Provider: Counts Include [facility] Unit Admitted: Medical Floor <VINCENT HARRIS - Last Filed: 08/25/20 22:30> - Discharge Clinical Impression: History of 2019 novel coronavirus disease (COVID-19) DVT (deep venous thrombosis) Qualifiers: Affected thrombotic vein of extremity: unspecified lower extremity distal vein Chronicity: acute Laterality: left Pulmonary embolism Qualifiers: Pulmonary embolism type: multiple subsegmental (without acute cor pulmonale) Qualified Code(s): I26.94 - Multiple subsegmental pulmonary emboli without acute cor pulmonale Condition: Stable Disposition: ADMITTED INPATIENT Referrals: ADRIENNE CABALLERO MD [Primary Care Provider] - Follow up as needed
[2020-08-25] MEDS: ENOXAPARIN SODIUM INJ 120 MG/0.8 ML DISP.SYRIN SUBCUT SCH ×2 (20:13→22:13)
--- NOTE | 2020-08-25 21:10 | RADIOLOGY REPORT (SQ) ---
EXAM DESCRIPTION: CT CHEST WITH INTRAVENOUS CONTRAST CLINICAL HISTORY: Clinical history of DVT presenting with dyspnea. COMPARISON: January 19, 2015 TECHNIQUE: CT of the chest was performed with intravenous contrast using pulmonary embolism protocol, followed by CTA of the pulmonary arterial vasculature, with 3D reconstruction of the pulmonary arterial vasculature. The patient was injected with 59 mL Omnipaque [address] exam was performed according to our departmental dose-optimization program, which includes one or more of the following dose reduction techniques: automated exposure control, adjustment of the mA and/or kV according to patient size, and/or use of iterative reconstruction technique. FINDINGS: Evaluation of the pulmonary arteries demonstrates focal filling defects within the branches supplying the bilateral lower lobes as well as the bilateral upper lobes and questionably involving the right middle lobe. The main pulmonary artery is not enlarged, measuring up to 2.5 cm in diameter on axial imaging. No significant reflux of contrast is present into the hepatic vasculature. There is no evidence of clinically significant thoracic aortic aneurysm or thoracic aortic dissection. There is no evidence of clinically significant pericardial effusion. There are mild bibasilar atelectatic changes. There are no airspace infiltrates, pleural effusions or pneumothoraces in the visualized lung zeng. There is no pathological axillary, supraclavicular, mediastinal or hilar lymphadenopathy. No suspicious lytic or blastic osseous lesions are identified. The visualized upper abdominal structures seen on the exam appear unremarkable. Patient is status post cholecystectomy. IMPRESSION: Evidence of bilateral acute pulmonary emboli as detailed above. Report contains findings that may be critical to patient care. Immediately upon image interpretation attempt was made to contact referring provider. When appropriate, an addendum will be composed.
[2020-08-25] MEDS ORDERED: ONDANSETRON HCL INJ/PF 4 MG/2 ML SDV IV PRN (23:48)
[2020-08-25] MEDS ORDERED: ACETAMINOPHEN 325 MG TABLET PO PRN (23:48)
[2020-08-26] MEDS ORDERED: ENOXAPARIN SODIUM INJ 120 MG/0.8 ML DISP.SYRIN SUBCUT ONE (00:15)
--- NOTE | 2020-08-26 00:29 | PDOC H&P ---
History of Present Illness Admission Date/PCP: 08/25/20 22:32 ADRIENNE CABALLERO MD Patient complains of: Left lower extremity swelling and pain, shortness of breath History of Present Illness: ASHLEY CHOWDARY is a 40 year old female with a history of intracranial hypertension, Chiari malformation, tobacco dependence, depression, anxiety and obesity who presents with 1 to 2 weeks duration of left lower extremity swelling and pain which was followed by shortness of breath. She states that she feels short of breath with exertion. She also endorses occasional chest tightness. She denies any cough, hemoptysis, lightheadedness, dizziness, bleeding for from any site. She states that she drove to [place] on the day the the lower extremity pain and swelling started. In addition to this patient also feels nauseous but denies any vomiting. She had LP done on 08/15 for intracranial hypertension which was associated with headache and was told that there was mild elevation in her intracranial pressure. She denies any self or family history of blood clots in the past. Past Medical History Cardiac Medical History: Reports: Hypertension, Other - "Hole in her heart" she is unsure as to whether an ASD or VSD Denies: Coronary Artery Disease, Myocardial Infarction Pulmonary Medical History: Reports: Asthma, Sleep Apnea Denies: Bronchitis, Chronic Obstructive Pulmonary Disease (COPD), Pneumonia Neurological Medical History: Reports: Other - Chiari malformation with resultant intracranial hypertension Denies: Seizures Musculoskeltal Medical History: Reports: Fibromyalgia Denies: Arthritis Psychiatric Medical History: Reports: Depression Hematology: Denies: Anemia Past Surgical History Past Surgical History: Reports: Cholecystectomy, Hysterectomy, Tonsillectomy Social History Information Source: Patient Smoking Status: Current Every Day Smoker Electronic Cigarette use?: No - Advance Directive Resuscitation Status: Full Code Family History Family History: Reviewed & Not Pertinent Parental Family History Reviewed: Yes Children Family History Reviewed: Yes Sibling(s) Family History Reviewed.: Yes Medication/Allergy Home Medications: Trazodone HCl 100 mg PO QHS 08/03/16 Cyclobenzaprine HCl [Flexeril 10 Mg Tablet] 10 mg PO TID #14 tablet 03/29/17 Furosemide [Lasix 20 mg Tablet] 20 mg PO Q48HS #30 tablet 03/29/17 Gabapentin [Neurontin] 600 mg PO TID #90 tablet 03/29/17 Venlafaxine HCl [Effexor Xr] 250 mg PO BID 04/08/17 Ondansetron [Zofran Odt 4 mg Tablet] 1 - 2 tab PO Q4H PRN #15 tab.rapdis 07/24/20 Potassium Chloride [K-Tab ER] 20 meq PO DAILY #7 tablet.er 07/25/20 Clonazepam [Klonopin 1 mg Tablet] 0.5 mg PO 08/15/20 Temazepam [Restoril] 30 mg PO 08/15/20 Allergies/Adverse Reactions: aripiprazole [From Abilify] Allergy (Severe, Verified 08/15/20 08:21) Confusion Iodinated Contrast Media [IV Dye, Iodine Containing] Allergy (Severe, Verified 08/15/20 08:21) Difficulty breathing tramadol [Tramadol] Allergy (Severe, Verified 08/15/20 08:21) Hives amitriptyline Allergy (Intermediate, Verified 08/15/20 08:21) swelling Review of Systems Constitutional: ABSENT: chills, fever(s), weight loss Eyes: ABSENT: visual disturbances Ears: ABSENT: hearing changes Nose, Mouth, and Throat: ABSENT: mouth pain, sore throat Cardiovascular: PRESENT: as per HPI. ABSENT: orthropnea, palpitations Respiratory: PRESENT: as per HPI Gastrointestinal: PRESENT: nausea. ABSENT: abdominal pain, constipation, diarrhea, hematemesis, hematochezia, vomiting Genitourinary: ABSENT: dysuria, hematuria Musculoskeletal: ABSENT: joint swelling Integumentary: ABSENT: rash, wounds Neurological: ABSENT: abnormal gait, abnormal speech, confusion, dizziness, focal weakness, syncope Psychiatric: ABSENT: anxiety, depression, homidical ideation, suicidal ideation Endocrine: ABSENT: cold intolerance, heat intolerance, polydipsia, polyuria Physical Exam Vital Signs: Temp Pulse Resp BP Pulse Ox 98.4 F 125 H 14 123/91 H 97 08/25/20 20:16 08/25/20 15:13 08/25/20 23:01 08/25/20 23:01 08/25/20 23:01 Intake & Output 08/24/20 08/25/20 08/26/20 06:59 06:59 06:59 Weight 107.501 kg Additional comments: GENERAL APPEARANCE: Alert and oriented x3, in no acute distress HEENT: Normocephalic and atraumatic. No scleral icterus. Moist oral mucosa NECK: Supple. No lymphadenopathy or tenderness. No carotid bruit. No JVD CHEST: Symmetric. Nontender to palpation. LUNGS: Clear with good air entry bilaterally. No wheezing or crackles HEART: Regular rate and rhythm with normal S1 and S2. No murmurs, gallops, or rubs. ABDOMEN: soft, active bowel sounds, no direct or rebound tenderness. No organomegaly detected. EXTREMITIES: No cyanosis, clubbing, or edema. MUSCULOSKELETAL: No deformity, atrophy or swelling noted PSYCHIATRIC: Recent and remote memory is intact. Appropriate mood and affect. SKIN: Warm, dry, and well perfused. No lesions or rashes are noted. NEUROLOGIC: No focal sensory or motor deficits are noted. Results Laboratory Results: 08/25/20 15:25 08/25/20 15:25 08/25/20 08/25/20 08/25/20 15:25 15:25 15:25 WBC 6.6 RBC 4.35 Hgb 14.5 Hct 41.1 MCV 94 MCH 33.3 MCHC 35.2 RDW 12.5 Plt Count 246 Seg Neutrophils % 52.7 Sodium 139.8 Potassium 3.6 Chloride 102 Carbon Dioxide 34 H Anion Gap 4 L BUN 9 Creatinine 0.62 Est GFR ( Amer) > 60 Glucose 91 Calcium 9.1 Total Bilirubin 0.4 AST 35 Alkaline Phosphatase 89 Total Protein 7.1 Albumin 3.9 TSH 3.25 Serum HCG, Qual 08/25/20 15:25 WBC RBC Hgb Hct MCV MCH MCHC RDW Plt Count Seg Neutrophils % Sodium Potassium Chloride Carbon Dioxide Anion Gap BUN Creatinine Est GFR ( Amer) Glucose Calcium Total Bilirubin AST Alkaline Phosphatase Total Protein Albumin TSH Serum HCG, Qual NEGATIVE 08/25/20 15:25 Troponin I < 0.012 NT-Pro-B Natriuret Pep 36 Impressions: Chest X-Ray 08/25/20 15:21 IMPRESSION: NO SIGNIFICANT RADIOGRAPHIC FINDING IN THE CHEST. Venous Doppler Study 08/25/20 15:22 IMPRESSION: Acute DVT. Chest/Abdomen CTA 08/25/20 18:45 IMPRESSION: Evidence of bilateral acute pulmonary emboli as detailed above. Report contains findings that may be critical to patient care. Immediately upon image interpretation attempt was made to contact referring provider. When appropriate, an addendum will be composed. Assessment and Plan - Diagnosis (1) Pulmonary embolism Qualifiers: Pulmonary embolism type: multiple subsegmental (without acute cor pulmonale) Qualified Code(s): I26.94 - Multiple subsegmental pulmonary emboli without acute cor pulmonale Is this a current diagnosis for this admission?: Yes Plan: Presents with shortness of breath Was treated for COVID-19 1 month ago and had recovered CTA of the chest shows bilateral acute pulmonary emboli EKG showed sinus tachycardia with no right heart strain Troponin was within the normal limits Started her on therapeutic dose Lovenox Will obtain echocardiogram to further assess any sign of right heart strain Will transition to DOAC on discharge Continue telemetry monitoring (2) DVT (deep venous thrombosis) Qualifiers: Affected thrombotic vein of extremity: unspecified lower extremity distal ve in Chronicity: acute Laterality: left Is this a current diagnosis for this admission?: Yes Plan: Patient developed left lower extremity pain and swelling after long drive preliminary Doppler ultrasound showed acute DVT on the left lower extremity CTA also shows bilateral PE as stated above Started her on therapeutic dose Lovenox and will transition to DOAC on discharge for at least 3 months (3) History of 2019 novel coronavirus disease (COVID-19) Is this a current diagnosis for this admission?: Yes Plan: Currently admitted and being managed for PE and DVT Symptoms had resolved but patient still tested positive Will be placed under special airborne isolation Currently asymptomatic and continue supportive care (4) Chiari malformation Is this a current diagnosis for this admission?: Yes Plan: Patient has a history of Chiari malformation with intracranial hypertension Lumbar puncture was done 10 days back due to persistent headache Currently following up with neurology outpatient (5) Tobacco abuse Is this a current diagnosis for this admission?: Yes Plan: Increased patient to cut down or quit tobacco use Declined nicotine patch while inpatient (6) Morbid obesity with BMI of 45.0-49.9, adult Is this a current diagnosis for this admission?: Yes Plan: Dietary counseling, regular exercise as tolerated (7) Anxiety and depression Is this a current diagnosis for this admission?: Yes Plan: Continue home medications - Time Time Spent with patient: 35 or more minutes Total Critical Time (Minutes): 45 Smoking Cessation Education: 3 to 10 minutes Medications reviewed and adjusted accordingly: Yes Anticipated Discharge Disposition: Home, Self Care Anticipated Discharge Timeframe: within 72 hours - Inpatient Certification Based on my medical assessment, after consideration of the patient's comorbidities, presenting symptoms, or acuity I expect that the services needed warrant INPATIENT care.: Yes I certify that my determination is in accordance with my understanding of Medicare's requirements for reasonable and necessary INPATIENT services [42 CFR 412.3e].: Yes Medical Necessity: Need Close Monitoring Due to Risk of Patient Decompensation, Need For Continuous Telemetry Monitoring, Risk of Complication if Not Cared For in Hospital Post Hospital Care: D/C or Transfer Summary
[2020-08-26] MEDS: FAMOTIDINE INJ/PF 20 MG/2 ML SDV IV SCH ×2 (00:32→10:19)
[2020-08-26] MEDS: OXYCODONE-ACETAMINOPHEN 5-325 MG TABLET PO PRN ×2 (00:32→06:22)
[2020-08-26 06:57] LABS: HEMATOCRIT 37.3 % (36.0-47.0); HEMOGLOBIN 13.4 g/dL (12.0-15.5); MEAN CORPUSCULAR HEMOGLOBIN 33.2 pg (27.0-33.4); MEAN CORPUSCULAR HGB CONC 35.9 g/dL (32.0-36.0); MEAN CORPUSCULAR VOLUME 93 fl (80-97); PLATELET COUNT 229 10^3/uL (150-450); RED BLOOD COUNT 4.03 10^6/uL (3.72-5.28); RED CELL DISTRIBUTION WIDTH 12.3 % (11.5-14.0); WHITE BLOOD COUNT 4.5 10^3/uL (4.0-10.5)
[2020-08-26 07:01] LABS: INTERNATIONAL RATION (INR) 0.95; PARTIAL THROMBOPLASTIN TIME 30.5 SEC (23.5-35.8); PROTHROMBIN TIME 12.9 SEC (11.4-15.4)
[2020-08-26 07:34] LABS: BLOOD UREA NITROGEN 10 mg/dL (7-20); CALCIUM 9.5 mg/dL (8.4-10.2); CARBON DIOXIDE 31 mmol/L (22-30); CHLORIDE 105 mmol/L (98-107); GLUCOSE 149 mg/dL (75-110)
[2020-08-26 07:39] LABS: ANION GAP 1 (5-19)
[2020-08-26] MEDS ORDERED: ENOXAPARIN SODIUM INJ 120 MG/0.8 ML DISP.SYRIN SUBCUT SCH (10:00)
[2020-08-26] MEDS ORDERED: DIPHENHYDRAMINE HCL 50 MG/ML VIAL IV ONE (11:30)
[2020-08-26] MEDS ORDERED: METOCLOPRAMIDE HCL INJ/PF 10 MG/2 ML SDV IV ONE (11:30)
[2020-08-26] MEDS ORDERED: KETOROLAC TROMETHAMINE INJ/PF 30 MG/1 ML SDV IV ONE (11:30)
--- NOTE | 2020-08-26 13:19 | PDOC DISCHARGE SUMMARY ---
Impression - Admit/DC Date/PCP Admission Date/Primary Care Provider: 08/25/20 22:32 ADRIENNE CABALLERO MD Discharge Date: 08/26/20 - Discharge Diagnosis (1) Acute pulmonary embolism Is this a current diagnosis for this admission?: Yes (2) Acute DVT (deep venous thrombosis) Is this a current diagnosis for this admission?: Yes (3) History of idiopathic intracranial hypertension Is this a current diagnosis for this admission?: Yes (4) History of 2019 novel coronavirus disease (COVID-19) Is this a current diagnosis for this admission?: Yes (5) Morbid obesity with BMI of 45.0-49.9, adult Is this a current diagnosis for this admission?: Yes (6) Chiari malformation Is this a current diagnosis for this admission?: Yes (7) Tobacco abuse Is this a current diagnosis for this admission?: Yes - Additional Information Resuscitation Status: Full Code Discharge Diet: Regular Referrals: ADRIENNE CABALLERO MD [Primary Care Provider] - Follow up as needed Prescriptions: Apixaban [Eliquis 5 mg Tablet] See Protocol PO BID #90 tablet Home Medications: Cyclobenzaprine HCl [Flexeril 10 mg Tablet] 10 mg PO TID #14 tablet 03/29/17 Clonazepam [Klonopin 1 mg Tablet] 1 mg PO BID 08/15/20 Temazepam [Restoril] 30 mg PO QHS 08/15/20 Apixaban [Eliquis 5 mg Tablet] See Protocol PO BID #90 tablet 08/26/20 Bupropion HCl [Bupropion Xl] 300 mg PO DAILY 08/26/20 Ergocalciferol (Vitamin D2) [Vitamin D2] 50 mcg PO Q7D 08/26/20 Furosemide [Lasix 20 mg Tablet] 1 - 3 tab PO DAILYP PRN 08/26/20 Gabapentin [Neurontin] 1,200 mg PO TID 08/26/20 Nabumetone 750 mg PO BID 08/26/20 Omeprazole 40 mg PO DAILY 08/26/20 Potassium Chloride 10 meq PO Q2D 08/26/20 Rizatriptan Benzoate [Rizatriptan] 10 mg PO ASDIR PRN 08/26/20 Sucralfate [Carafate 1 gm Tablet] 1 gm PO DAILY 08/26/20 History of Present Illiness History of Present Illness: ASHLEY CHOWDARY is a 40 year old female Hospital Course Hospital Course: Patient was admitted to the hospital for evaluation of shortness of breath and leg swelling. Notably she had just been recovering from a recent COVID-19 infection which was diagnosed in June 2020. She never required oxygen. In the hospital on this occasion her pulse oximetry was normal. She was taking for venous Dopplers which revealed DVT. CTA of the chest revealed bilateral pulmonary embolisms without any evidence of right heart strain. She was admitted to the hospital and started on anticoagulation with therapeutic Lovenox. She is doing well. She did complain of a headache this morning. Notably she has history of intracranial hypertension and had lumbar puncture done several days back. She received a headache cocktail. She is plan to follow-up with her neurologist upon discharge. She will also be seeing her primary care provider within 2 weeks. Her respiratory situation is stable and she is ready for discharge. She has received Lovenox this morning and we will give her her first dose of Eliquis this evening right before she goes home. She is going home with a prescription for Eliquis 10 mg twice daily x7 days then transition to 5 mg twice daily from then henceforth. It is likely that her VTE is being provoked by her recent COVID-19 infection and she will require 3 to 6 months of anticoagulation. She has been instructed to follow-up with her primary care provider for further care and to get refills. Physical Exam Vital Signs: Temp Pulse Resp BP Pulse Ox 97.8 F 93 16 114/63 94 08/26/20 10:00 08/26/20 07:00 08/26/20 03:43 08/26/20 03:43 08/26/20 03:43 Intake & Output 08/25/20 08/26/20 08/27/20 06:59 06:59 06:59 Weight 109.3 kg General appearance: PRESENT: no acute distress, cooperative, morbidly obese Head exam: PRESENT: normocephalic Eye exam: PRESENT: EOMI, PERRLA Neck exam: ABSENT: JVD Respiratory exam: PRESENT: clear to auscultation kaitlyn, unlabored. ABSENT: accessory muscle use, retraction Cardiovascular exam: PRESENT: +S1, +S2. ABSENT: tachycardia Neurological exam: PRESENT: alert, awake, oriented to person, oriented to place, oriented to time, oriented to situation Results Laboratory Results: WBC 4.5 10^3/uL (4.0-10.5) 08/26/20 05:52 RBC 4.03 10^6/uL (3.72-5.28) 08/26/20 05:52 Hgb 13.4 g/dL (12.0-15.5) 08/26/20 05:52 Hct 37.3 % (36.0-47.0) 08/26/20 05:52 MCV 93 fl (80-97) 08/26/20 05:52 MCH 33.2 pg (27.0-33.4) 08/26/20 05:52 MCHC 35.9 g/dL (32.0-36.0) 08/26/20 05:52 RDW 12.3 % (11.5-14.0) 08/26/20 05:52 Plt Count 229 10^3/uL (150-450) 08/26/20 05:52 Lymph % (Auto) 36.5 % (13-45) 08/25/20 15:25 [place] % (Auto) 6.9 % (3-13) 08/25/20 15:25 Eos % (Auto) 2.7 % (0-6) 08/25/20 15:25 Baso % (Auto) 1.2 % (0-2) 08/25/20 15:25 Absolute Neuts (auto) 3.5 10^3/uL (1.7-8.2) 08/25/20 15:25 Absolute Lymphs (auto) 2.4 10^3/uL (0.5-4.7) 08/25/20 15:25 Absolute Monos (auto) 0.5 10^3/uL (0.1-1.4) 08/25/20 15:25 Absolute Eos (auto) 0.2 10^3/uL (0.0-0.6) 08/25/20 15:25 Absolute Basos (auto) 0.1 10^3/uL (0.0-0.2) 08/25/20 15:25 Seg Neutrophils % 52.7 % (42-78) 08/25/20 15:25 PT 12.9 SEC (11.4-15.4) 08/26/20 05:52 INR 0.95 08/26/20 05:52 APTT 30.5 SEC (23.5-35.8) 08/26/20 05:52 Sodium 137.1 mmol/L (137-145) 08/26/20 05:52 Potassium 4.0 mmol/L (3.6-5.0) 08/26/20 05:52 Chloride 105 mmol/L (98-107) 08/26/20 05:52 Carbon Dioxide 31 mmol/L (22-30) H 08/26/20 05:52 Anion Gap 1 (5-19) L 08/26/20 05:52 BUN 10 mg/dL (7-20) 08/26/20 05:52 Creatinine 0.54 mg/dL (0.52-1.25) 08/26/20 05:52 Est GFR ( Amer) > 60 (>60) 08/26/20 05:52 Est GFR (MDRD) Non-Af > 60 (>60) 08/26/20 05:52 Glucose 149 mg/dL (75-110) H 08/26/20 05:52 Hemoglobin A1c % 4.6 % (4.7-6.0) L 08/26/20 05:52 Calcium 9.5 mg/dL (8.4-10.2) 08/26/20 05:52 Total Bilirubin 0.4 mg/dL (0.2-1.3) 08/25/20 15:25 Direct Bilirubin 0.1 mg/dL (0.0-0.4) 08/25/20 15:25 Neonat Total Bilirubin Not Reportable 08/25/20 15:25 Neonat Direct Bilirubin Not Reportable 08/25/20 15:25 Neonat Indirect Bili Not Reportable 08/25/20 15:25 AST 35 U/L (14-36) 08/25/20 15:25 ALT 32 U/L (<35) 08/25/20 15:25 Alkaline Phosphatase 89 U/L (38-126) 08/25/20 15:25 Troponin I < 0.012 ng/mL 08/25/20 15:25 NT-Pro-B Natriuret Pep 36 pg/mL (<125) 08/25/20 15:25 Total Protein 7.1 g/dL (6.3-8.2) 08/25/20 15:25 Albumin 3.9 g/dL (3.5-5.0) 08/25/20 15:25 TSH 3.25 uIU/mL (0.47-4.68) 08/25/20 15:25 Serum HCG, Qual NEGATIVE (NEGATIVE) 08/25/20 15:25 Influenza A (RT-PCR) NEGATIVE (NEGATIVE) 08/25/20 23:01 Influenza B (RT-PCR) NEGATIVE (NEGATIVE) 08/25/20 23:01 RSV (RT-PCR) NEGATIVE (NEGATIVE) 08/25/20 23:01 SARS-CoV-2 Rap RNA(RT-PCR) POSITIVE (NEGATIVE) H 08/25/20 23:01 08/25/20 15:25 Troponin I < 0.012 NT-Pro-B Natriuret Pep 36 Impressions: Chest X-Ray 08/25/20 15:21 IMPRESSION: NO SIGNIFICANT RADIOGRAPHIC FINDING IN THE CHEST. Venous Doppler Study 08/25/20 15:22 IMPRESSION: Acute DVT. Chest/Abdomen CTA 08/25/20 18:45 IMPRESSION: Evidence of bilateral acute pulmonary emboli as detailed above. Report contains findings that may be critical to patient care. Immediately upon image interpretation attempt was made to contact referring provider. When appropriate, an addendum will be composed. Plan Time Spent: Less than 30 Minutes Stroke Is this a Stroke Patient?: No Acute Heart Failure Is this a Heart Failure Patient?: No
[2020-08-26] MEDS ORDERED: BUPROPION HCL 100 MG TABLET PO SCH (14:00)
[2020-08-26] MEDS ORDERED: GABAPENTIN 300 MG CAPSULE PO SCH (14:00)
[2020-08-26] MEDS ORDERED: SUCRALFATE 1 GM TABLET PO SCH (14:00)
[2020-08-26] MEDS ORDERED: CYCLOBENZAPRINE HCL 10 MG TABLET PO SCH (14:00)
[2020-08-26 16:31] VITALS: BP 133/95
[2020-08-26] MEDS ORDERED: APIXABAN 5 MG TABLET PO ONE (17:00)
[2020-08-26] MEDS ORDERED: CLONAZEPAM 1 MG TABLET PO SCH (18:00)
== END 2020-08-26 17:42 | disposition home or self-care (01) | DRG 175 ==
LOC: ER 14:59 → EH 22:32 → 3S 08-26 01:40
PROVIDERS: ADMIT Student in an Organized Health Care Education/Training Program; ATTEND Internal Medicine
DX: I26.94 Multiple subsegmental thrombotic pulmonary emboli without acute cor pulmonale (principal); U07.1 COVID-19; I82.4Z2 Acute embolism and thrombosis of unspecified deep veins of left distal lower extremity; B94.8 Sequelae of other specified infectious and parasitic diseases; E66.01 Morbid (severe) obesity due to excess calories; F32.9 Major depressive disorder, single episode, unspecified; F41.9 Anxiety disorder, unspecified; G93.2 Benign intracranial hypertension; M79.7 Fibromyalgia; F17.210 Nicotine dependence, cigarettes, uncomplicated; Z79.899 Other long term (current) drug therapy; Z88.8 Allergy status to other drugs, medicaments and biological substances; Z88.6 Allergy status to analgesic agent; Z91.041 Radiographic dye allergy status
CPT/HCPCS: 36415; 71045; 71275; 80048; 80053; 83036; 83880; 84443; 84484; 84703; 85025; 85027; 85610; 85730; 93005; 93010; 93971; 96372; 96374; 96375; 99285; 0241U; C9803; J1200; J1650; J1885; J2765; J2930; S0028